=== PATIENT | female | born 1950 | race Caucasian/White ===

== ENCOUNTER 2019-08-25 04:21 | Observation (INO) | payer MEDICARE, OTHER ==
--- NOTE | 2019-08-25 04:29 | EDM.PDOC ---
ED HPI GENERAL MEDICAL PROBLEM - General Stated Complaint: HIGH BLOOD PRESSURE Time Seen by Provider: 08/25/19 04:27 Source of Information: Reports: Patient History Limitations: Reports: No Limitations - History of Present Illness INITIAL COMMENTS - FREE TEXT/NARRATIVE: 68-year-old female with history of fibromyalgia, Brugada syndrome, HTN, CAD presents with headache and chest discomfort. She was watching TV at 0 320 and started feeling gradual onset diffuse throbbing headache, she missed her night dose of lisinopril, she checked her blood pressure and it was 165/105. She took aspirin 324 mg, 1 sublingual nitroglycerin, Xanax with no relief she also took Tylenol with no relief. Her headache is currently rated 10/10. She also notes midsternal chest discomfort sensation rated 6/10, associated with nausea. She also has a cough with white sputum. She denies fever, chills, vomiting, back pain, abdominal pain. She currently sees Dr. Echeverria for management of her Brugada syndrome. ROS: A 10-point review of systems, other than pertinent positives and negatives as stated per HPI, is otherwise negative PHYSICAL EXAM General: AOx4, GCS = 15, No distress HEENT: dry mucous membrane Neck: supple, no meningismus, no Kernig or Brudzinski Cardiac: S1S2 RRR Respiratory: CTAB, no crackles or rales, no wheezing Abdomen: Soft, nontender, no rebound or guarding, nondistended, no pulsatile mass. Back: nontender Musculoskeletal: NVI distally, no deformity Neuro: No focal deficits. head/neck Pain Score (Numeric/FACES): 8 - Related Data Allergies Allergy/AdvReac Type Severity Reaction Status Date / Time cetirizine [From Zyrtec] Allergy Unknown Other Verified 08/25/19 06:28 chlordiazepoxide Allergy Other Verified 08/25/19 06:28 codeine Allergy Other Verified 08/25/19 06:28 iodine Allergy Other Verified 08/25/19 06:28 latex Allergy Other Verified 08/25/19 06:28 levofloxacin [From Levaquin] Allergy Pain Verified 08/25/19 06:28 montelukast [From Singulair] Allergy Other Verified 08/25/19 06:28 morphine Allergy Other Verified 08/25/19 06:28 nitrofurantoin Allergy Other Verified 08/25/19 06:28 [From Macrobid] oxycodone [From OxyContin] Allergy Other Verified 08/25/19 06:28 pantoprazole [From Protonix] Allergy Other Verified 08/25/19 06:28 Quinolones Allergy Other Verified 08/25/19 06:28 sulfamethoxazole Allergy Other Verified 08/25/19 06:28 [From Septra] topiramate Allergy Other Verified 08/25/19 06:28 tramadol Allergy Other Verified 08/25/19 06:28 trimethoprim [From Septra] Allergy Other Verified 08/25/19 06:28 Home Meds: Home Meds ALPRAZolam [Xanax] 0.5 mg PO BID 08/25/19 [History] Ascorbic Acid [Vitamin C] 500 mg PO DAILY 08/25/19 [History] Aspirin 81 mg PO DAILY 08/25/19 [History] Cholecalciferol (Vitamin D3) [Vitamin D3] 1 tab PO DAILY 08/25/19 [History] Cinnamon [Cinnamon Oil] 1 tab PO DAILY 08/25/19 [History] Cranberry 1 tab PO DAILY 08/25/19 [History] Fish Oil/[place]-3 Fatty Acids [Fish Oil 1,000 MG] 1 tab PO DAILY 08/25/19 [History] L.acidoph,Paracasei, B.lactis [Probiotic] 1 tab PO DAILY 08/25/19 [History] Magnesium Oxide [Magnesium] 400 mg PO DAILY 08/25/19 [History] Nitroglycerin [Nitrostat] 0.4 mg PO ASDIRECTED PRN 08/25/19 [History] Ranitidine [Zantac] 150 mg PO DAILY 08/25/19 [History] Rosuvastatin [Crestor] 5 mg PO DAILY 08/25/19 [History] Turmeric 40 mg PO DAILY 08/25/19 [History] Ubidecarenone [Co Q-10] 400 mg PO DAILY 08/25/19 [History] lisinopriL [Lisinopril] 5 mg PO BID 08/25/19 [History] Past Medical History Cardiovascular History: Reports: Angina, Hypertension Musculoskeletal History: Reports: Fibromyalgia, Osteoarthritis Endocrine/Metabolic History: Reports: Other (See Below) Other Endocrine/Metabolic History: "thyroid problems" Oncologic (Cancer) History: Reports: Basal Cell Carcinoma Dermatologic History: Reports: Other (See Below) Other Dermatologic History: basal cell carcinoma - Past Surgical History Respiratory Surgical History: Reports: Other (See Below) Other Respiratory Surgeries/Procedures: "lung nodules calcified" GI Surgical History: Reports: Appendectomy Female Surgical History: Reports: Hysterectomy, Other (See Below) Other Female Surgeries/Procedures: bladder and vaginal vault prolapse Neurological Surgical History: Reports: C-Spine, Spinal Fusion Musculoskeletal Surgical History: Reports: Shoulder Surgery Dermatological Surgical History: Reports: Other (See Below) ED ROS GENERAL - Review of Systems Review Of Systems: Comprehensive ROS is negative, except as noted in HPI. ED EXAM, GENERAL - Physical Exam Exam: See Below EKG INTERPRETATION EKG Interpretation Comments: 91 Bpm, NSR, normal QRS interval, type II Brugada syndrome, no STEMI. EKG and rhythm strip interpreted by me at 0445 Course - Vital Signs Last Recorded V/S: Last Vital Signs Temp 96.8 F L 08/25/19 05:34 Pulse 71 08/25/19 06:07 Resp 20 08/25/19 05:34 BP 138/79 08/25/19 06:07 Pulse Ox 96 08/25/19 05:34 - Orders/Labs/Meds Orders: Active Orders 24 hr Category Date Time Status Admission Status [Patient Status] [ADT] Stat ADT 08/25/19 06:52 Ordered Cardiac Monitoring [RC] . DIRECTED Care 08/25/19 04:58 Active Cardiac Monitoring [RC] . DIRECTED Care 08/25/19 06:52 Ordered EKG Documentation Completion [RC] STAT Care 08/25/19 04:59 Active Pulse Oximetry [RC] ASDIRECTED Care 08/25/19 04:58 Active CORONAVIRUS COVID-19 SHAUNNA [MOLEC] Stat Lab 08/25/19 06:10 Received TROPONIN I [CHEM] Stat Lab 08/25/19 06:51 Ordered Sodium Chloride 0.9% [Saline Flush] Med 08/25/19 04:58 Active 10 ml FLUSH ASDIRECTED PRN Sodium Chloride 0.9% [Saline Flush] Med 08/25/19 04:58 Active 2.5 ml FLUSH ASDIRECTED PRN Saline Lock Insert [OM.PC] Stat Oth 08/25/19 04:58 Ordered Medication Orders Sodium Chloride (Saline Flush) 10 ml FLUSH ASDIRECTED PRN PRN Reason: Keep Vein Open Sodium Chloride (Saline Flush) 2.5 ml FLUSH ASDIRECTED PRN PRN Reason: Keep Vein Open Labs: Laboratory Tests 08/25/19 08/25/19 08/25/19 Range/Units 05:15 05:15 05:15 WBC 7.20 (4.0-11.0) K/uL RBC 4.89 (4.30-5.90) M/uL Hgb 13.7 (12.0-16.0) g/dL Hct 41.4 (36.0-46.0) % MCV 84.7 (80.0-98.0) fL MCH 28.0 (27.0-32.0) pg MCHC 33.1 (31.0-37.0) g/dL RDW Std Deviation 40.3 (28.0-62.0) fl RDW Coeff of Yisel 13 (11.0-15.0) % Plt Count 301 (150-400) K/uL MPV 10.50 (7.40-12.00) fL Neut % (Auto) 58.2 (48.0-80.0) % Lymph % (Auto) 31.1 (16.0-40.0) % Wheeler % (Auto) 9.0 (0.0-15.0) % Eos % (Auto) 1.4 (0.0-7.0) % Baso % (Auto) 0.3 (0.0-1.5) % Neut # (Auto) 4.2 (1.4-5.7) K/uL Lymph # (Auto) 2.2 (0.6-2.4) K/uL Wheeler # (Auto) 0.7 (0.0-0.8) K/uL Eos # (Auto) 0.1 (0.0-0.7) K/uL Baso # (Auto) 0.0 (0.0-0.1) K/uL Nucleated RBC % 0.0 /100WBC Nucleated RBCs # 0 K/uL INR 0.95 APTT (18.6-31.3) SEC Sodium 141 (136-145) mmol/L Potassium 3.7 (3.5-5.1) mmol/L Chloride 105 (98-107) mmol/L Carbon Dioxide 26.7 (21.0-32.0) mmol/L BUN 15 (7.0-18.0) mg/dL Creatinine 0.8 (0.6-1.0) mg/dL Est Cr Clr Drug Dosing 60.56 mL/min Estimated GFR (MDRD) > 60.0 ml/min Glucose 98 (74-106) mg/dL Calcium 9.8 (8.5-10.1) mg/dL Total Bilirubin 0.3 (0.2-1.0) mg/dL AST 15 (15-37) IU/L ALT 21 (14-63) IU/L Alkaline Phosphatase 75 (46-116) U/L Troponin I < 0.050 (0.000-0.056) ng/mL B-Natriuretic Peptide (<100) PG/ML Total Protein 7.3 (6.4-8.2) g/dL Albumin 3.8 (3.4-5.0) g/dL Globulin 3.5 (2.6-4.0) g/dL Albumin/Globulin Ratio 1.1 (0.9-1.6) 08/25/19 08/25/19 Range/Units 05:15 05:15 WBC (4.0-11.0) K/uL RBC (4.30-5.90) M/uL Hgb (12.0-16.0) g/dL Hct (36.0-46.0) % MCV (80.0-98.0) fL MCH (27.0-32.0) pg MCHC (31.0-37.0) g/dL RDW Std Deviation (28.0-62.0) fl RDW Coeff of Yisel (11.0-15.0) % Plt Count (150-400) K/uL MPV (7.40-12.00) fL Neut % (Auto) (48.0-80.0) % Lymph % (Auto) (16.0-40.0) % Wheeler % (Auto) (0.0-15.0) % Eos % (Auto) (0.0-7.0) % Baso % (Auto) (0.0-1.5) % Neut # (Auto) (1.4-5.7) K/uL Lymph # (Auto) (0.6-2.4) K/uL Wheeler # (Auto) (0.0-0.8) K/uL Eos # (Auto) (0.0-0.7) K/uL Baso # (Auto) (0.0-0.1) K/uL Nucleated RBC % /100WBC Nucleated RBCs # K/uL INR APTT 25.8 (18.6-31.3) SEC Sodium (136-145) mmol/L Potassium (3.5-5.1) mmol/L Chloride (98-107) mmol/L Carbon Dioxide (21.0-32.0) mmol/L BUN (7.0-18.0) mg/dL Creatinine (0.6-1.0) mg/dL Est Cr Clr Drug Dosing mL/min Estimated GFR (MDRD) ml/min Glucose (74-106) mg/dL Calcium (8.5-10.1) mg/dL Total Bilirubin (0.2-1.0) mg/dL AST (15-37) IU/L ALT (14-63) IU/L Alkaline Phosphatase (46-116) U/L Troponin I (0.000-0.056) ng/mL B-Natriuretic Peptide 30 (<100) PG/ML Total Protein (6.4-8.2) g/dL Albumin (3.4-5.0) g/dL Globulin (2.6-4.0) g/dL Albumin/Globulin Ratio (0.9-1.6) Meds: Medications Generic Name Dose Route Start Last Admin Trade Name Freq PRN Reason Stop Dose Admin Sodium Chloride 10 ml 08/25/19 04:58 Saline Flush FLUSH ASDIRECTED PRN Keep Vein Open Sodium Chloride 2.5 ml 08/25/19 04:58 Saline Flush FLUSH ASDIRECTED PRN Keep Vein Open Discontinued Medications Generic Name Dose Route Start Last Admin Trade Name Freq PRN Reason Stop Dose Admin Diphenhydramine HCl 25 mg 08/25/19 05:09 08/25/19 05:28 Benadryl IVPUSH 08/25/19 05:10 Not Given ONETIME ONE Lactated Ringer's 500 mls @ 999 mls/hr 08/25/19 04:58 08/25/19 05:20 Ringers, Lactated IV 08/25/19 05:28 999 mls/hr .BOLUS ONE Administration Labetalol HCl 10 mg 08/25/19 05:08 08/25/19 06:50 Normodyne IVPUSH 08/25/19 05:09 Not Given ONETIME ONE Protocol Labetalol HCl 10 mg 08/25/19 05:30 Normodyne IVPUSH 08/25/19 05:31 ONETIME ONE Metoclopramide HCl 10 mg 08/25/19 05:09 08/25/19 05:28 Reglan IVPUSH 08/25/19 05:10 Not Given ONETIME ONE - Re-Assessments/Exams Free Text/Narrative Re-Assessment/Exam: 08/25/19 06:46 Patient has no chest pain at this time, her headache is improved down to 4/10. Case discussed with , who agrees to assume care at this point. The hospitalist's documentation supersedes all other documentation on this patient with regard to any conflicts or discrepancies from this point forward. Any emergency conditions have been treated to the ability of the ED prior to admission. Departure - Departure Time of Disposition: 06:47 Disposition: Refer to Observation Condition: Good Clinical Impression: Tension-type headache, Chest pain, Brugada syndrome, Hypertension - Discharge Information *PRESCRIPTION DRUG MONITORING PROGRAM REVIEWED*: Not Applicable *COPY OF PRESCRIPTION DRUG MONITORING REPORT IN PATIENT TIGIST: Not Applicable Referrals: Meek Dobbs MD [Primary Care Provider] - Sepsis Event Note (ED) - Focused Exam Vital Signs: Vital Signs Temp Pulse Resp BP Pulse Ox 08/25/19 06:07 71 138/79 08/25/19 05:34 96.8 F L 79 20 174/90 H 96 08/25/19 04:43 20 199/109 H 96 - My Orders Last 24 Hours: My Active Orders 08/25/19 04:58 Cardiac Monitoring [RC] . DIRECTED Pulse Oximetry [RC] ASDIRECTED Sodium Chloride 0.9% [Saline Flush] 10 ml FLUSH ASDIRECTED PRN Sodium Chloride 0.9% [Saline Flush] 2.5 ml FLUSH ASDIRECTED PRN Saline Lock Insert [OM.PC] Stat 08/25/19 04:59 EKG Documentation Completion [RC] STAT 08/25/19 06:10 CORONAVIRUS COVID-19 SHAUNNA [MOLEC] Stat 08/25/19 06:51 TROPONIN I [CHEM] Stat 08/25/19 06:52 Admission Status [Patient Status] [ADT] Stat Cardiac Monitoring [RC] . DIRECTED - Assessment/Plan Last 24 Hours: My Active Orders 08/25/19 04:58 Cardiac Monitoring [RC] . DIRECTED Pulse Oximetry [RC] ASDIRECTED Sodium Chloride 0.9% [Saline Flush] 10 ml FLUSH ASDIRECTED PRN Sodium Chloride 0.9% [Saline Flush] 2.5 ml FLUSH ASDIRECTED PRN Saline Lock Insert [OM.PC] Stat 08/25/19 04:59 EKG Documentation Completion [RC] STAT 08/25/19 06:10 CORONAVIRUS COVID-19 SHAUNNA [MOLEC] Stat 08/25/19 06:51 TROPONIN I [CHEM] Stat 08/25/19 06:52 Admission Status [Patient Status] [ADT] Stat Cardiac Monitoring [RC] . DIRECTED
[2019-08-25] MEDS ORDERED: Lactated Ringers 500 ML IV ONE (04:58)
[2019-08-25] MEDS ORDERED: Sodium Chloride 0.9% 2.5 ML Syringe FLUSH PRN (04:58)
[2019-08-25] MEDS ORDERED: Sodium Chloride 0.9% 10 ML Syringe FLUSH PRN (04:58)
[2019-08-25] MEDS ORDERED: Labetalol 100 MG/20 ML MDV IVPUSH ONE ×3 (05:08→08:35)
[2019-08-25] MEDS: diphenhydrAMINE 50 MG/ML SDV IVPUSH ONE ×2 (05:20→05:28)
[2019-08-25] MEDS: Metoclopramide 10 MG/2 ML SDV IVPUSH ONE ×2 (05:21→05:28)
[2019-08-25 05:53] LABS: BLOOD UREA NITROGEN,BUN 15 mg/dL (7.0-18.0); CARBON DIOXIDE,CO2 26.7 mmol/L (21.0-32.0); CHLORIDE,CL 105 mmol/L (98-107); GLUCOSE RANDOM 98 mg/dL (74-106); POTASSIUM,K 3.7 mmol/L (3.5-5.1); SODIUM,NA 141 mmol/L (136-145)
--- NOTE | 2019-08-25 06:13 | CR ---
INDICATION: Hypertension COMPARISON: None TECHNIQUE: PA and lateral views of the chest were acquired FINDINGS: TUBES AND LINES: None. HEART AND MEDIASTINUM: The heart size is normal. The mediastinal contour appears normal for patient age. LUNGS AND PLEURAL SPACES: The lungs appear normal.There pleural spaces are unremarkable.Incidental left upper lobe granuloma. OSSEOUS STRUCTURES: Age-appropriate appearance. No acute focal finding. IMPRESSION: No evidence of active pulmonary disease. Dictated by Bhavik Zafar MD @ Aug 25 2019 6:09AM Signed by Dr. Bhavik Zafar @ Aug 25 2019 6:11AM
--- NOTE | 2019-08-25 06:15 | CT ---
INDICATION: Headache. Hypertensive COMPARISON: None TECHNIQUE: CT examination of the head was performed as axial sections without intravenous contrast. Images were obtained from the vertex of the skull through the skull base. Please note that all CT scans at this facility use dose modulation, iterative reconstruction, and/or weight-based dosing when appropriate to reduce radiation dose to as low as reasonably achievable. FINDINGS: The brain shows no sign of mass lesion, mass effect, hemorrhage, or edema. The ventricles and sulci are normal in appearance for the patient`s age. The visualized portions of the orbits are normal in appearance. The osseous structures are normal in their appearance with no sign of abnormality in the skull base or calvarium. IMPRESSION: Age-appropriate appearance of the brain. No acute appearing finding. Please note that all CT scans at this facility use dose modulation, iterative reconstruction, and/or weight-based dosing when appropriate to reduce radiation dose to as low as reasonably achievable. Dictated by Bhavik Zafar MD @ Aug 25 2019 6:11AM Signed by Dr. Bhavik Zafar @ Aug 25 2019 6:13AM
[2019-08-25] MEDS ORDERED: Albuterol/Ipratropium 3.0-0.5 MG/3 ML Neb Soln NEB PRN (08:31)
[2019-08-25] MEDS ORDERED: Nitroglycerin 0.4 MG Tab.SL SL PRN (08:36)
[2019-08-25] MEDS ORDERED: Labetalol 100 MG/20 ML MDV IVPUSH PRN (08:38)
[2019-08-25] MEDS ORDERED: ACIDOPH PARACASEI B LACTIS PO SCH (09:00)
[2019-08-25] MEDS ORDERED: Cholecalciferol (Vitamin D3) 10 MCG Tab PO SCH (09:00)
[2019-08-25] MEDS ORDERED: Ranitidine 15 MG/ML Syrup 10 ML UD Cup PO SCH (09:00)
[2019-08-25] MEDS ORDERED: ALPRAZolam 0.5 MG Tab PO PRN (09:00)
[2019-08-25] MEDS ORDERED: Rosuvastatin 10 MG Tab PO SCH ×2 (09:00→21:00)
[2019-08-25] MEDS: Fish Oil/Omega-3 Fatty Acids 1 Gm Cap PO SCH ×2 (09:56→10:23)
[2019-08-25] MEDS: Ascorbic Acid 500 MG Tab PO SCH ×2 (09:56→10:24)
[2019-08-25] MEDS: Aspirin 81 MG Tab.Chew PO SCH (09:58)
[2019-08-25] MEDS: Lisinopril 5 MG Tab PO SCH ×4 (10:14→20:20)
[2019-08-25] MEDS ORDERED: Levothyroxine 75 MCG Tab PO SCH (10:45)
[2019-08-25] MEDS: Cholecalciferol (Vitamin D3) 10 MCG Tab PO SCH (11:39)
[2019-08-25] MEDS: Famotidine 20 MG Tab PO SCH ×2 (11:39→20:21)
--- NOTE | 2019-08-25 11:48 | PCM.HP.2 ---
H&P History of Present Illness - General Date of Service: 08/25/19 Admit Problem/Dx: Admission Diagnosis/Problem Admission Diagnosis/Problem Chest pain - History of Present Illness Initial Comments - Free Text/Narative: 68-year-old female with history of fibromyalgia, Brugada syndrome, HTN, CAD presents with headache and chest discomfort. She was watching TV at 320 and started feeling gradual onset diffuse throbbing headache, she missed her night dose of lisinopril, she checked her blood pressure and it was 165/105, checked again SBP>200. She took aspirin 324 mg, 1 sublingual nitroglycerin, Xanax with no relief she also took Tylenol with no relief. She also notes midsternal chest discomfort sensation rated 6/10, associated with nausea. She also has a cough with white sputum. She denies fever, chills, vomiting, back pain, abdominal pain. She currently sees Dr. Garcia for management of her Brugada syndrome. Patent had a recent stress test in Feb which was unremarkable. She was supposed to see EPS but didnt go due to current pandemic. Patient states her BP is usually low so she ends up taking lisinopril 2.5 once a day. Patient states she think her anxiety causes her BP to up, states she had a stressful day yesterday after she had an argument with her family member. She was also up all night pedro watching a drama series which also made her emotional. States she woke up her son due to her high BP and came to ER. Patient states her chest discomfort felt more like a heart burn. Denied any palpitations, syncope, pre-syncope, dizziness. In ER EKG showed 1st degree HB and Brugada. Rest of the labs were unremarkable. Patient is being admitted for ACS rule out. head/neck Pain Score (Numeric/FACES): 8 - Related Data Allergies/Adverse Reactions: Allergies Allergy/AdvReac Type Severity Reaction Status Date / Time levofloxacin [From Levaquin] Allergy Severe Pain Verified 08/25/19 18:25 tramadol Allergy Intermediate Other Verified 08/25/19 18:31 latex Allergy Mild Other Verified 08/25/19 18:24 cetirizine [From Zyrtec] Allergy Unknown Other Verified 08/25/19 18:21 chlordiazepoxide Allergy Unknown Other Verified 08/25/19 18:21 nitrofurantoin Allergy Unknown Other Verified 08/25/19 18:27 [From Macrobid] sulfamethoxazole Allergy Unknown Other Verified 08/25/19 18:31 [From Septra] topiramate Allergy Unknown Other Verified 08/25/19 18:31 trimethoprim [From Septra] Allergy Unknown Other Verified 08/25/19 18:31 Quinolones AdvReac Unknown Other Verified 08/25/19 18:31 codeine AdvReac Other Verified 08/25/19 18:21 iodine AdvReac Other Verified 08/25/19 18:23 montelukast [From Singulair] AdvReac Other Verified 08/25/19 18:26 morphine AdvReac Other Verified 08/25/19 18:26 oxycodone [From OxyContin] AdvReac Other Verified 08/25/19 18:31 pantoprazole [From Protonix] AdvReac Other Verified 08/25/19 18:31 Home Medications: Home Meds ALPRAZolam [Xanax] 0.5 mg PO BID 08/25/19 [History] Ascorbic Acid [Vitamin C] 500 mg PO DAILY 08/25/19 [History] Aspirin 81 mg PO DAILY 08/25/19 [History] Cholecalciferol (Vitamin D3) [Vitamin D3] 1 tab PO DAILY 08/25/19 [History] Cinnamon [Cinnamon Oil] 1 tab PO DAILY 08/25/19 [History] Cranberry 1 tab PO DAILY 08/25/19 [History] Famotidine 20 mg PO BID 08/25/19 [History] Fish Oil/Colton-3 Fatty Acids [Fish Oil 1,000 MG] 1 tab PO DAILY 08/25/19 [History] L.acidoph,Paracasei, B.lactis [Probiotic] 1 tab PO DAILY 08/25/19 [History] Levothyroxine Sodium [Levoxyl] 75 mg PO DAILY 08/25/19 [History] Magnesium Oxide [Magnesium] 400 mg PO DAILY 08/25/19 [History] Nitroglycerin [Nitrostat] 0.4 mg PO ASDIRECTED PRN 08/25/19 [History] Rosuvastatin [Crestor] 5 mg PO DAILY 08/25/19 [History] Turmeric 40 mg PO DAILY 08/25/19 [History] Ubidecarenone [Co Q-10] 400 mg PO DAILY 08/25/19 [History] lisinopriL [Lisinopril] 2.5 mg PO BID 08/25/19 [History] Past Medical History Other HEENT History: sinitus Cardiovascular History: Reports: Angina, Hypertension Other Cardiovascular History: coronary artery spasm Other Gastrointestinal History: cholecystitis Other Genitourinary History: kideney mass, Musculoskeletal History: Reports: Fibromyalgia, Osteoarthritis Other Musculoskeletal History: bursitis Neurological History: Reports: Migraines Other Neuro History: memory loss, myalgia, Endocrine/Metabolic History: Reports: Other (See Below) Other Endocrine/Metabolic History: "thyroid problems" Oncologic (Cancer) History: Reports: Basal Cell Carcinoma Other Oncologic History: lung nodule, Dermatologic History: Reports: Other (See Below) Other Dermatologic History: basal cell carcinoma - Past Surgical History Respiratory Surgical History: Reports: Other (See Below) Other Respiratory Surgeries/Procedures: "lung nodules calcified" GI Surgical History: Reports: Appendectomy Female Surgical History: Reports: Hysterectomy, Other (See Below) Other Female Surgeries/Procedures: bladder and vaginal vault prolapse Neurological Surgical History: Reports: C-Spine, Spinal Fusion Musculoskeletal Surgical History: Reports: Shoulder Surgery Dermatological Surgical History: Reports: Other (See Below) Social & Family History - Tobacco Use Smoking Status *Q: Never Smoker - Recreational Drug Use Recreational Drug Use: No H&P Review of Systems - Review of Systems: Review Of Systems: See Below General: Denies: Fever, Chills, Malaise Pulmonary: Denies: Shortness of Breath, Wheezing Cardiovascular: Denies: Chest Pain, Palpitations, Dyspnea on Exertion, Orthopnea Gastrointestinal: Denies: Abdominal Pain, Anorexia, Black Stool Genitourinary: Denies: Dysuria, Frequency, Burning Musculoskeletal: Denies: Neck Pain, Shoulder Pain, Arm Pain Skin: Denies: Cyanosis, Jaundice, Mottled Psychiatric: Reports: Anxiety. Denies: Confusion, Depression, Mood Lability, Agitation, Cravings, Hallucinations Exam - Exam Exam: See Below - Vital Signs Vital Signs: Last Vital Signs Temp 36.6 C 08/25/19 09:10 Pulse 71 08/25/19 09:10 Resp 15 08/25/19 09:10 BP 128/67 08/25/19 10:54 Pulse Ox 97 08/25/19 09:10 Weight: 76.204 kg - Exam Quality Assessment: Supplemental Oxygen General: Alert, Oriented Neck: Supple Lungs: Clear to Auscultation Cardiovascular: Regular Rate, Regular Rhythm GI/Abdominal Exam: Normal Bowel Sounds, Soft, Non-Tender Peripheral Pulses: 3+: Dorsalis Pedis (L), Dorsalis Pedis (R) Neurological: Cranial Nerves Intact, Strength Equal Bilateral Neuro Extensive - Mental Status: Alert, Oriented x3, Normal Mood/Affect - Patient Data Lab Results Last 24 hrs: Laboratory Results - last 24 hr 08/25/19 08/25/19 08/25/19 Range/Units 05:15 05:15 05:15 WBC 7.20 (4.0-11.0) K/uL RBC 4.89 (4.30-5.90) M/uL Hgb 13.7 (12.0-16.0) g/dL Hct 41.4 (36.0-46.0) % MCV 84.7 (80.0-98.0) fL MCH 28.0 (27.0-32.0) pg MCHC 33.1 (31.0-37.0) g/dL RDW Std Deviation 40.3 (28.0-62.0) fl RDW Coeff of Yisel 13 (11.0-15.0) % Plt Count 301 (150-400) K/uL MPV 10.50 (7.40-12.00) fL Neut % (Auto) 58.2 (48.0-80.0) % Lymph % (Auto) 31.1 (16.0-40.0) % [place] % (Auto) 9.0 (0.0-15.0) % Eos % (Auto) 1.4 (0.0-7.0) % Baso % (Auto) 0.3 (0.0-1.5) % Neut # (Auto) 4.2 (1.4-5.7) K/uL Lymph # (Auto) 2.2 (0.6-2.4) K/uL [place] # (Auto) 0.7 (0.0-0.8) K/uL Eos # (Auto) 0.1 (0.0-0.7) K/uL Baso # (Auto) 0.0 (0.0-0.1) K/uL Nucleated RBC % 0.0 /100WBC Nucleated RBCs # 0 K/uL INR 0.95 APTT (18.6-31.3) SEC Sodium 141 (136-145) mmol/L Potassium 3.7 (3.5-5.1) mmol/L Chloride 105 (98-107) mmol/L Carbon Dioxide 26.7 (21.0-32.0) mmol/L BUN 15 (7.0-18.0) mg/dL Creatinine 0.8 (0.6-1.0) mg/dL Est Cr Clr Drug Dosing 60.56 mL/min Estimated GFR (MDRD) > 60.0 ml/min Glucose 98 (74-106) mg/dL Calcium 9.8 (8.5-10.1) mg/dL Total Bilirubin 0.3 (0.2-1.0) mg/dL AST 15 (15-37) IU/L ALT 21 (14-63) IU/L Alkaline Phosphatase 75 (46-116) U/L Troponin I < 0.050 (0.000-0.056) ng/mL B-Natriuretic Peptide (<100) PG/ML Total Protein 7.3 (6.4-8.2) g/dL Albumin 3.8 (3.4-5.0) g/dL Globulin 3.5 (2.6-4.0) g/dL Albumin/Globulin Ratio 1.1 (0.9-1.6) SARS Virus RNA (PCR) (NEGATIVE) 08/25/19 08/25/19 08/25/19 Range/Units 05:15 05:15 06:10 WBC (4.0-11.0) K/uL RBC (4.30-5.90) M/uL Hgb (12.0-16.0) g/dL Hct (36.0-46.0) % MCV (80.0-98.0) fL MCH (27.0-32.0) pg MCHC (31.0-37.0) g/dL RDW Std Deviation (28.0-62.0) fl RDW Coeff of Yisel (11.0-15.0) % Plt Count (150-400) K/uL MPV (7.40-12.00) fL Neut % (Auto) (48.0-80.0) % Lymph % (Auto) (16.0-40.0) % [place] % (Auto) (0.0-15.0) % Eos % (Auto) (0.0-7.0) % Baso % (Auto) (0.0-1.5) % Neut # (Auto) (1.4-5.7) K/uL Lymph # (Auto) (0.6-2.4) K/uL [place] # (Auto) (0.0-0.8) K/uL Eos # (Auto) (0.0-0.7) K/uL Baso # (Auto) (0.0-0.1) K/uL Nucleated RBC % /100WBC Nucleated RBCs # K/uL INR APTT 25.8 (18.6-31.3) SEC Sodium (136-145) mmol/L Potassium (3.5-5.1) mmol/L Chloride (98-107) mmol/L Carbon Dioxide (21.0-32.0) mmol/L BUN (7.0-18.0) mg/dL Creatinine (0.6-1.0) mg/dL Est Cr Clr Drug Dosing mL/min Estimated GFR (MDRD) ml/min Glucose (74-106) mg/dL Calcium (8.5-10.1) mg/dL Total Bilirubin (0.2-1.0) mg/dL AST (15-37) IU/L ALT (14-63) IU/L Alkaline Phosphatase (46-116) U/L Troponin I (0.000-0.056) ng/mL B-Natriuretic Peptide 30 (<100) PG/ML Total Protein (6.4-8.2) g/dL Albumin (3.4-5.0) g/dL Globulin (2.6-4.0) g/dL Albumin/Globulin Ratio (0.9-1.6) SARS Virus RNA (PCR) NEGATIVE (NEGATIVE) 08/25/19 Range/Units 07:09 WBC (4.0-11.0) K/uL RBC (4.30-5.90) M/uL Hgb (12.0-16.0) g/dL Hct (36.0-46.0) % MCV (80.0-98.0) fL MCH (27.0-32.0) pg MCHC (31.0-37.0) g/dL RDW Std Deviation (28.0-62.0) fl RDW Coeff of Yisel (11.0-15.0) % Plt Count (150-400) K/uL MPV (7.40-12.00) fL Neut % (Auto) (48.0-80.0) % Lymph % (Auto) (16.0-40.0) % [place] % (Auto) (0.0-15.0) % Eos % (Auto) (0.0-7.0) % Baso % (Auto) (0.0-1.5) % Neut # (Auto) (1.4-5.7) K/uL Lymph # (Auto) (0.6-2.4) K/uL [place] # (Auto) (0.0-0.8) K/uL Eos # (Auto) (0.0-0.7) K/uL Baso # (Auto) (0.0-0.1) K/uL Nucleated RBC % /100WBC Nucleated RBCs # K/uL INR APTT (18.6-31.3) SEC Sodium (136-145) mmol/L Potassium (3.5-5.1) mmol/L Chloride (98-107) mmol/L Carbon Dioxide (21.0-32.0) mmol/L BUN (7.0-18.0) mg/dL Creatinine (0.6-1.0) mg/dL Est Cr Clr Drug Dosing mL/min Estimated GFR (MDRD) ml/min Glucose (74-106) mg/dL Calcium (8.5-10.1) mg/dL Total Bilirubin (0.2-1.0) mg/dL AST (15-37) IU/L ALT (14-63) IU/L Alkaline Phosphatase (46-116) U/L Troponin I < 0.050 (0.000-0.056) ng/mL B-Natriuretic Peptide (<100) PG/ML Total Protein (6.4-8.2) g/dL Albumin (3.4-5.0) g/dL Globulin (2.6-4.0) g/dL Albumin/Globulin Ratio (0.9-1.6) SARS Virus RNA (PCR) (NEGATIVE) Result Diagrams: 08/25/19 05:15 08/25/19 05:15 Sepsis Event Note - Evaluation Sepsis Screening Result: No Definite Risk - Focused Exam Vital Signs: Vital Signs Temp Pulse Resp BP BP BP Pulse Ox 08/25/19 10:54 128/67 08/25/19 09:10 36.6 C 71 15 119/65 97 08/25/19 08:26 73 196/76 H 98 08/25/19 07:36 35.8 C L 74 16 170/88 H 97 08/25/19 06:07 71 138/79 08/25/19 05:34 36.0 C L 79 20 174/90 H 96 08/25/19 04:43 20 199/109 H 96 Date Exam was Performed: 08/27/19 Time Exam was Performed: 14:24 - Problem List (1) Uncontrolled hypertension SNOMED Code(s): 52589588, 50196540 ICD Code: I10 - ESSENTIAL (PRIMARY) HYPERTENSION Status: Acute (2) Brugada syndrome SNOMED Code(s): 809997729 ICD Code: I49.8 - OTHER SPECIFIED CARDIAC ARRHYTHMIAS Status: Acute (3) Chest pain SNOMED Code(s): 95074870 ICD Code: R07.9 - CHEST PAIN, UNSPECIFIED Status: Acute (4) Tension-type headache SNOMED Code(s): 173021351 ICD Code: G44.209 - TENSION-TYPE HEADACHE, UNSPECIFIED, NOT INTRACTABLE Status: Acute Problem List Initiated/Reviewed/Updated: Yes Orders Last 24hrs: Active Orders 24 hr Category Date Time Status Admission Status [Patient Status] [ADT] Stat ADT 08/25/19 06:52 Active Ambulate [RC] ASDIRECTED Care 08/25/19 08:31 Active Antiembolic Devices [RC] PER UNIT ROUTINE Care 08/25/19 08:33 Active Cardiac Monitoring [RC] . DIRECTED Care 08/25/19 04:58 Active Cardiac Monitoring [RC] . DIRECTED Care 08/25/19 06:52 Active Oxygen Therapy [RC] PRN Care 08/25/19 08:31 Active Pulse Oximetry [RC] ASDIRECTED Care 08/25/19 04:58 Active RT Aerosol Therapy [RC] ASDIRECTED Care 08/25/19 08:33 Active Telemetry Monitoring [Cardiac Monitoring] [RC] Q8H Care 08/25/19 08:48 Active VTE/DVT Education [RC] PER UNIT ROUTINE Care 08/25/19 08:31 Active Heart Healthy Diet [DIET] Diet 08/25/19 Breakfast Active TROPONIN I [CHEM] Routine Lab 08/25/19 11:14 Received ALPRAZolam [Xanax] Med 08/25/19 09:00 Active 0.5 mg PO BID PRN Acetaminophen [Tylenol] Med 08/25/19 08:31 Active 650 mg PO Q4H PRN Albuterol/Ipratropium [DuoNeb 3.0-0.5 MG/3 ML] Med 08/25/19 08:31 Active 3 ml NEB Q4HRRT PRN Ascorbic Acid [Vitamin C] Med 08/25/19 09:00 Active 500 mg PO DAILY Aspirin Med 08/25/19 09:00 Active 81 mg PO DAILY Cholecalciferol (Vitamin D3) [Vitamin D3] Med 08/25/19 10:15 Active 10 mcg PO DAILY Famotidine [Pepcid] Med 08/25/19 10:15 Active 20 mg PO BID Fish Oil/Colton-3 Fatty Acids [Fish Oil] Med 08/25/19 09:00 Active 1 gm PO DAILY Labetalol [Normodyne] Med 08/25/19 08:38 Active 10 mg IVPUSH Q4H PRN Levothyroxine Med 08/25/19 17:00 Active 75 mcg PO ACBREAKFAST Nitroglycerin [Nitrostat] Med 08/25/19 08:36 Active 0.4 mg SL ASDIRECTED PRN Rosuvastatin [Crestor] Med 08/25/19 09:00 Active 5 mg PO DAILY Sodium Chloride 0.9% [Saline Flush] Med 08/25/19 04:58 Active 10 ml FLUSH ASDIRECTED PRN Sodium Chloride 0.9% [Saline Flush] Med 08/25/19 04:58 Active 2.5 ml FLUSH ASDIRECTED PRN lisinopriL [Prinivil] Med 08/25/19 10:30 Active 2.5 mg PO BID Saline Lock Insert [OM.PC] Stat Oth 08/25/19 04:58 Ordered Sequential Compression Device [OM.PC] Per Unit Routine Oth 08/25/19 08:32 Ordered Code Status [Resuscitation Status] Routine Resus Stat 08/25/19 10:58 Ordered Medication Orders Acetaminophen (Tylenol) 650 mg PO Q4H PRN PRN Reason: Pain (Mild 1-3)/fever Albuterol/Ipratropium (Duoneb 3.0-0.5 Mg/3 Ml) 3 ml NEB Q4HRRT PRN PRN Reason: Shortness Of Breath/wheezing Alprazolam (Xanax) 0.5 mg PO BID PRN PRN Reason: ANXIETY Ascorbic Acid (Vitamin C) 500 mg PO DAILY [facility] Last Admin: 08/25/19 10:24 Dose: Not Given Documented by: PROFLUC Aspirin (Aspirin) 81 mg PO DAILY [facility] Last Admin: 08/25/19 09:58 Dose: Not Given Documented by: PROFLUC Cholecalciferol (Vitamin D3) 10 mcg PO DAILY [facility] Famotidine (Pepcid) 20 mg PO BID [facility] Fish Oil (Fish Oil) 1 gm PO DAILY [facility] Last Admin: 08/25/19 10:23 Dose: Not Given Documented by: PROFLUC Labetalol HCl (Normodyne) 10 mg IVPUSH Q4H PRN; Protocol PRN Reason: Hypertension Levothyroxine Sodium (Levothyroxine) 75 mcg PO ACBREAKFAST [facility] Lisinopril (Prinivil) 2.5 mg PO BID [facility] Last Admin: 08/25/19 10:54 Dose: 2.5 mg Documented by: PROFLUC Nitroglycerin (Nitrostat) 0.4 mg SL ASDIRECTED PRN PRN Reason: Chest Pain Rosuvastatin Calcium (Crestor) 5 mg PO DAILY [facility] Last Admin: 08/25/19 09:58 Dose: Not Given Documented by: PROFLUC Sodium Chloride (Saline Flush) 10 ml FLUSH ASDIRECTED PRN PRN Reason: Keep Vein Open Sodium Chloride (Saline Flush) 2.5 ml FLUSH ASDIRECTED PRN PRN Reason: Keep Vein Open Assessment/Plan Comment:: 68 y/o F admitted for ACS rule out Trend troponin X3 EKG noted, no sign of ischemic changes I spoke to cardiology, recommended fu with EPS on outpatient basis for evaluation of Brugada finding on EKG, no syncope, no dizziness cont home meds Labetalol IV PRN for SBP>180 Cardiac diet SCD for DVT ppx Monitor and replete electrolytes as needed Ambulate as tolerated
[2019-08-25] MEDS ORDERED: Aluminum Hydroxide/Magnesium Hydroxide/Simethicone Susp 30 ML Cup PO ONE (13:57)
[2019-08-25] MEDS: Acetaminophen 325 MG Tab PO PRN ×2 (14:28→19:49)
[2019-08-25] MEDS: Levothyroxine 75 MCG Tab PO SCH (17:10)
[2019-08-26] MEDS: Levothyroxine 75 MCG Tab PO SCH (07:18)
[2019-08-26] MEDS: Famotidine 20 MG Tab PO SCH (09:01)
[2019-08-26] MEDS: Aspirin 81 MG Tab.Chew PO SCH (09:02)
[2019-08-26] MEDS: Cholecalciferol (Vitamin D3) 10 MCG Tab PO SCH (09:02)
[2019-08-26] MEDS: Lisinopril 5 MG Tab PO SCH (09:02)
[2019-08-26] MEDS: Ascorbic Acid 500 MG Tab PO SCH (09:02)
[2019-08-26] MEDS: Fish Oil/Omega-3 Fatty Acids 1 Gm Cap PO SCH (09:02)
--- NOTE | 2019-08-26 09:03 | PCM.DCSUM1 ---
Discharge Summary - Discharge Data Discharge Date: 08/26/19 Discharge Disposition: Home, Self-Care 01 Condition: Stable - Referral to Home Health Primary Care Physician: Barbara Marquez MD - Patient Summary/Data Hospital Course: 68-year-old female with history of fibromyalgia, Brugada syndrome, HTN, CAD who was admitted for chest pain. She presented with headache and chest discomfort associated with elevated blood pressure as she missed her evening blood pressure dose of lisinopril. She thinks her chest pain was stress related. IN the ED she was noted to have no signs of acute ischemia on EKG. She was monitored overnight on telemetry with no events. She rule out for acute coronary syndrome with serial negative cardiac enzymes. She was discharged home to have follow up with Dr. Cox. - Patient Instructions Diet: Heart Healthy Diet - Discharge Plan *PRESCRIPTION DRUG MONITORING PROGRAM REVIEWED*: Not Applicable *COPY OF PRESCRIPTION DRUG MONITORING REPORT IN PATIENT TIGIST: Not Applicable Home Medications: Home Meds ALPRAZolam [Xanax] 0.5 mg PO BID 08/25/19 [History] Ascorbic Acid [Vitamin C] 500 mg PO DAILY 08/25/19 [History] Aspirin 81 mg PO DAILY 08/25/19 [History] Cholecalciferol (Vitamin D3) [Vitamin D3] 1 tab PO DAILY 08/25/19 [History] Cinnamon [Cinnamon Oil] 1 tab PO DAILY 08/25/19 [History] Cranberry 1 tab PO DAILY 08/25/19 [History] Famotidine 20 mg PO BID 08/25/19 [History] Fish Oil/[place]-3 Fatty Acids [Fish Oil 1,000 MG] 1 tab PO DAILY 08/25/19 [History] L.acidoph,Paracasei, B.lactis [Probiotic] 1 tab PO DAILY 08/25/19 [History] Levothyroxine Sodium [Levoxyl] 75 mg PO DAILY 08/25/19 [History] Magnesium Oxide [Magnesium] 400 mg PO DAILY 08/25/19 [History] Nitroglycerin [Nitrostat] 0.4 mg PO ASDIRECTED PRN 08/25/19 [History] Rosuvastatin [Crestor] 5 mg PO DAILY 08/25/19 [History] Turmeric 40 mg PO DAILY 08/25/19 [History] Ubidecarenone [Co Q-10] 400 mg PO DAILY 08/25/19 [History] lisinopriL [Lisinopril] 2.5 mg PO BID 08/25/19 [History] Patient Handouts: Hypertension, Adult, [id number] Forms: ED Department Discharge Referrals: Danie Anthony MD [Physician] - Meek Dobbs MD [Family Provider] - 09/01/19 12:15 pm - Discharge Summary/Plan Comment DC Time >30 min.: No - Patient Data Vitals - Most Recent: Last Vital Signs Temp 36.7 C 08/26/19 07:16 Pulse 62 08/26/19 07:16 Resp 20 08/26/19 07:16 BP 133/65 08/26/19 07:16 Pulse Ox 98 08/26/19 07:16 Weight - Most Recent: 76.204 kg I&O - Last 24 hours: Intake & Output 08/25/19 08/26/19 08/26/19 22:59 06:59 14:59 Intake Total 1200 1480 Output Total 900 1450 Balance 300 30 Lab Results - Last 24 hrs: Laboratory Results - last 24 hr 08/25/19 Range/Units 11:14 Troponin I < 0.050 (0.000-0.056) ng/mL Med Orders - Current: Current Medications Acetaminophen (Tylenol) 650 mg PO Q4H PRN PRN Reason: Pain (Mild 1-3)/fever Last Admin: 08/25/19 19:49 Dose: 650 mg Documented by: Albuterol/Ipratropium (Duoneb 3.0-0.5 Mg/3 Ml) 3 ml NEB Q4HRRT PRN PRN Reason: Shortness Of Breath/wheezing Alprazolam (Xanax) 0.5 mg PO BID PRN PRN Reason: ANXIETY Ascorbic Acid (Vitamin C) 500 mg PO DAILY [facility] Last Admin: 08/25/19 10:24 Dose: Not Given Documented by: Aspirin (Aspirin) 81 mg PO DAILY [facility] Last Admin: 08/25/19 09:58 Dose: Not Given Documented by: Cholecalciferol (Vitamin D3) 10 mcg PO DAILY [facility] Last Admin: 08/25/19 11:39 Dose: 10 mcg Documented by: Famotidine (Pepcid) 20 mg PO BID [facility] Last Admin: 07/17/20 20:21 Dose: 20 mg Documented by: Fish Oil (Fish Oil) 1 gm PO DAILY [facility] Last Admin: 08/25/19 10:23 Dose: Not Given Documented by: Labetalol HCl (Normodyne) 10 mg IVPUSH Q4H PRN; Protocol PRN Reason: Hypertension Levothyroxine Sodium (Levothyroxine) 75 mcg PO ACBREAKFAST [facility] Last Admin: 08/26/19 07:18 Dose: 75 mcg Documented by: Lisinopril (Prinivil) 2.5 mg PO BID [facility] Last Admin: 08/25/19 20:20 Dose: 2.5 mg Documented by: Nitroglycerin (Nitrostat) 0.4 mg SL ASDIRECTED PRN PRN Reason: Chest Pain Rosuvastatin Calcium (Crestor) 5 mg PO BEDTIME [facility] Last Admin: 08/25/19 21:24 Dose: 5 mg Documented by: Sodium Chloride (Saline Flush) 10 ml FLUSH ASDIRECTED PRN PRN Reason: Keep Vein Open Sodium Chloride (Saline Flush) 2.5 ml FLUSH ASDIRECTED PRN PRN Reason: Keep Vein Open Discontinued Medications Al Hydroxide/Mg Hydroxide (Mag-Al Plus) 30 ml PO ONETIME ONE Stop: 08/25/19 13:58 Last Admin: 08/25/19 14:15 Dose: Not Given Documented by: Cholecalciferol (Vitamin D3) 1 mcg PO DAILY [facility] Last Admin: 08/25/19 10:55 Dose: Not Given Documented by: Diphenhydramine HCl (Benadryl) 25 mg IVPUSH ONETIME ONE Stop: 08/25/19 05:10 Last Admin: 08/25/19 05:28 Dose: Not Given Documented by: Lactated Ringer's (Ringers, Lactated) 500 mls @ 999 mls/hr IV .BOLUS ONE Stop: 08/25/19 05:28 Last Admin: 08/25/19 05:20 Dose: 999 mls/hr Documented by: Labetalol HCl (Normodyne) 10 mg IVPUSH ONETIME ONE; Protocol Stop: 08/25/19 05:09 Last Admin: 08/25/19 06:50 Dose: Not Given Documented by: Labetalol HCl (Normodyne) 10 mg IVPUSH ONETIME ONE Stop: 08/25/19 05:31 Last Admin: 08/25/19 05:30 Dose: 10 mg Documented by: Labetalol HCl (Normodyne) 20 mg IVPUSH ONETIME ONE; Protocol Stop: 08/25/19 08:36 Last Admin: 08/25/19 09:58 Dose: Not Given Documented by: Levothyroxine Sodium (Levothyroxine) 75 mcg PO ACBREAKFAST [facility] Last Admin: 08/25/19 11:55 Dose: Not Given Documented by: Lisinopril (Prinivil) 5 mg PO BID [facility] Last Admin: 08/25/19 10:55 Dose: Not Given Documented by: Metoclopramide HCl (Reglan) 10 mg IVPUSH ONETIME ONE Stop: 08/25/19 05:10 Last Admin: 08/25/19 05:28 Dose: Not Given Documented by: Rosuvastatin Calcium (Crestor) 5 mg PO DAILY [facility] Last Admin: 08/25/19 09:58 Dose: Not Given Documented by:
== END 2019-08-26 11:15 | disposition home or self-care (01) ==
LOC: MW.ED 04:21 → MW.MS 06:52 → UNDOADMOB 06:52
PROVIDERS: ADMIT Student in an Organized Health Care Education/Training Program; ATTEND Student in an Organized Health Care Education/Training Program
DX: R07.2 Precordial pain (principal); G44.209 Tension-type headache, unspecified, not intractable; M79.7 Fibromyalgia; I49.8 Other specified cardiac arrhythmias; I10 Essential (primary) hypertension; I25.10 Atherosclerotic heart disease of native coronary artery without angina pectoris; Z20.828 Contact with and (suspected) exposure to other viral communicable diseases; Z88.8 Allergy status to other drugs, medicaments and biological substances; Z88.5 Allergy status to narcotic agent; Z91.041 Radiographic dye allergy status; Z88.2 Allergy status to sulfonamides; Z88.6 Allergy status to analgesic agent; Z79.899 Other long term (current) drug therapy; Z79.82 Long term (current) use of aspirin; Z91.040 Latex allergy status
CPT/HCPCS: 36415; 70450; 71045; 80053; 83880; 84484; 85025; 85610; 85730; 93005; 96361; 96374; 99285; A9270; G0378; J3490; J7120; U0002; 93010; 99284; J1200; J2765

== ENCOUNTER 2020-05-15 14:21 | Observation (INO) | payer MEDICARE, OTHER ==
[2020-05-15] MEDS ORDERED: Sodium Chloride 0.9% 2.5 ML Syringe FLUSH PRN (14:53)
[2020-05-15] MEDS ORDERED: Sodium Chloride 0.9% 10 ML Syringe FLUSH PRN (14:53)
--- NOTE | 2020-05-15 15:10 | EDM.PDOC ---
ED HPI GENERAL MEDICAL PROBLEM - General Chief Complaint: Cardiovascular Problem Stated Complaint: HIGH BP Time Seen by Provider: 05/15/20 14:32 Source of Information: Reports: Patient History Limitations: Reports: No Limitations - History of Present Illness INITIAL COMMENTS - FREE TEXT/NARRATIVE: HISTORY AND PHYSICAL: History of present illness: Patient is a 69-year-old female who presents to the emergency room who presents to the emergency room with complaints of generally feeling unwell and high blood pressure. She states she woke up around 2 AM with needing to void and have a bowel movement. During that time she felt generally unwell. She checked her blood pressure around 0330 and it was 204/112. She also had some left arm tingling without weakness. She had taken some of her prescribed medications and was able to get her blood pressure down to "normal". Blood pressure would go "up and down" and she continues to feel generally unwell, fatigued and slightly nauseated. She was able to see her primary care provider today who wanted her to come to the emergency room for a "work-up" due to her hypertension. Patient denies any fever, chills, headache, change in vision, syncope or near syncope. Denies any chest pain, back pain, shortness of breath or cough. Denies any abdominal pain, vomiting, diarrhea, constipation or dysuria. Has not noted any blood in urine or stool. Patient has been eating and drinking appropriately. Review of systems: As per history of present illness and below otherwise all systems reviewed and negative. Past medical history: As per history of present illness and as reviewed below otherwise noncontributory. Surgical history: As per history of present illness and as reviewed below otherwise noncontributory. Social history: See social history for further information Family history: As per history of present illness and as reviewed below otherwise noncontributory. Physical exam: General: Well developed and well nourished. Alert and orientated x 3. Nontoxic in appearance and in no acute distress. Vital signs are stable and have been reviewed by me. Nursing notes were reviewed. HEENT: Atraumatic, normocephalic, pupils equal and reactive bilaterally, negative for conjunctival pallor or scleral icterus, mucous membranes moist, TMs normal bilaterally, throat clear, neck supple, nontender, trachea midline. No drooling or trismus noted. No meningeal signs. No hot potato voice noted. Lungs: Clear to auscultation bilaterally. No wheezes, rales, or rhonchi. Chest nontender. Normal work of breathing, no accessory muscles used. Heart: S1S2, regular rate and rhythm without overt murmur, gallops, or rubs. No JVD. No peripheral edema Abdomen: Soft, nondistended, nontender. Normoactive bowel sounds. Negative for masses or costovertebral tenderness. Skin: Intact, warm, dry. No lesions or rashes noted. Hematologic: No petechiae or purpra. Mucosa appropriate color and normal nail bed color and refill. Extremities: Atraumatic, moves all extremities per self without difficulty or deficits, negative for cords or calf pain. Neurovascular unremarkable. Neuro: Awake, alert, oriented. Cranial nerves II through XII unremarkable. Cerebellum unremarkable. Motor and sensory unremarkable throughout. Exam nonfocal. Psychiatric: Mood and affect are appropriate. Normal thought process. Answering questions appropriately. Notes: *This patient was seen and evaluated during the 2019 SARS-CoV-2 novel coronavirus pandemic period. Community viral transmission is ongoing at time of this encounter and the emergency department is operating under pandemic response procedures. Patient had 3 [facility] PHYSICAL THERAPY TECHNICIAN. Patient does have EKG changes in V1 and V2 although she denies any chest pain or SOB. Will repeat a second troponin and continue to monitor. Unremarkable noncontrast head CT. Chest x-ray unremarkable. I have talked with the patient about today's findings, in addition to providing specific details for plan of care. She continues to deny and chest pain or SOB. Repeat Troponin is negative. Blood pressure has been good while here. Dr Nobles, hospitalist on-call, was consulted. Will admit patient to Med/Surg with t elemetry for further care and management. Patient remains pain free. Diagnostics: CBC, CMP, UA, Troponin, EKG, CXR, Head CT Therapeutics: SL, [employer] Collector Impression: Uncontrolled hypertension EKG changes Plan: Observation admission with telemetry Definitive disposition and diagnosis as appropriate pending reevaluation and review of above. - Related Data Allergies Allergy/AdvReac Type Severity Reaction Status Date / Time levofloxacin [From Levaquin] Allergy Severe Pain Verified 05/15/20 14:38 tramadol Allergy Intermediate Other Verified 05/15/20 14:38 latex Allergy Mild Other Verified 05/15/20 14:38 cetirizine [From Zyrtec] Allergy Unknown Other Verified 05/15/20 14:38 chlordiazepoxide Allergy Unknown Other Verified 05/15/20 14:38 nitrofurantoin Allergy Unknown Other Verified 05/15/20 14:38 [From Macrobid] sulfamethoxazole Allergy Unknown Other Verified 05/15/20 14:38 [From Septra] topiramate Allergy Unknown Other Verified 05/15/20 14:38 trimethoprim [From Septra] Allergy Unknown Other Verified 05/15/20 14:38 Quinolones AdvReac Unknown Other Verified 05/15/20 14:38 codeine AdvReac Other Verified 05/15/20 14:38 iodine AdvReac Other Verified 05/15/20 14:38 montelukast [From Singulair] AdvReac Other Verified 05/15/20 14:38 morphine AdvReac Other Verified 05/15/20 14:38 oxycodone [From OxyContin] AdvReac Other Verified 05/15/20 14:38 pantoprazole [From Protonix] AdvReac Other Verified 05/15/20 14:38 Home Meds: Home Meds ALPRAZolam [Xanax] 0.5 mg PO BID PRN 08/25/19 [History] Ascorbic Acid [Vitamin C] 500 mg PO DAILY 08/25/19 [History] Aspirin 81 mg PO DAILY 08/25/19 [History] Cholecalciferol (Vitamin D3) [Vitamin D3] 1 tab PO DAILY 08/25/19 [History] Cranberry 1 tab PO DAILY 08/25/19 [History] Famotidine 20 mg PO BID 08/25/19 [History] Fish Oil/[place]-3 Fatty Acids [Fish Oil 1,000 MG] 1 tab PO DAILY 08/25/19 [History] L.acidoph,Paracasei, B.lactis [Probiotic] 1 tab PO DAILY 08/25/19 [History] Levothyroxine Sodium [Levoxyl] 75 mcg PO DAILY 08/25/19 [History] Magnesium Oxide [Magnesium] 200 mg PO DAILY 08/25/19 [History] Nitroglycerin [Nitrostat] 0.4 mg PO ASDIRECTED PRN 08/25/19 [History] Rosuvastatin [Crestor] 5 mg PO DAILY 08/25/19 [History] Turmeric 40 mg PO DAILY 08/25/19 [History] Ubidecarenone [Co Q-10] 400 mg PO DAILY 08/25/19 [History] lisinopriL [Lisinopril] 2.5 mg PO BID 08/25/19 [History] Past Medical History Other HEENT History: sinitus Cardiovascular History: Reports: Angina, Hypertension Other Cardiovascular History: coronary artery spasm Other Gastrointestinal History: cholecystitis Other Genitourinary History: kideney mass, Musculoskeletal History: Reports: Fibromyalgia, Osteoarthritis Other Musculoskeletal History: bursitis Neurological History: Reports: Migraines Other Neuro History: memory loss, myalgia, Psychiatric History: Reports: Anxiety Endocrine/Metabolic History: Reports: Other (See Below) Other Endocrine/Metabolic History: "thyroid problems" Oncologic (Cancer) History: Reports: Basal Cell Carcinoma Other Oncologic History: lung nodule, Dermatologic History: Reports: Other (See Below) Other Dermatologic History: basal cell carcinoma - Infectious Disease History Infectious Disease History: Reports: Chicken Pox, Measles, Mumps - Past Surgical History Respiratory Surgical History: Reports: Other (See Below) Other Respiratory Surgeries/Procedures: "lung nodules calcified" GI Surgical History: Reports: Appendectomy, Cholecystectomy Female Surgical History: Reports: Hysterectomy, Other (See Below) Other Female Surgeries/Procedures: bladder and vaginal vault prolapse Neurological Surgical History: Reports: C-Spine, Spinal Fusion Musculoskeletal Surgical History: Reports: Shoulder Surgery Dermatological Surgical History: Reports: Other (See Below) Social & Family History - Family History Cardiac: Reports: Bypass, Heart Failure, Hypertension, MS, Other (See Below) Other Cardiac Family History: hardening of arteries Endocrine/Metabolic: Reports: Hypothyroidism - Tobacco Use Tobacco Use Status *Q: Never Tobacco User - Caffeine Use Caffeine Use: Reports: Coffee, Soda, Tea - Recreational Drug Use Recreational Drug Use: No ED ROS GENERAL - Review of Systems Review Of Systems: Comprehensive ROS is negative, except as noted in HPI. ED EXAM, GENERAL - Physical Exam Exam: See Below (See dictation) Course - Vital Signs Last Recorded V/S: Last Vital Signs Temp 97.1 F 05/15/20 14:33 Pulse 71 05/15/20 16:35 Resp 18 05/15/20 14:33 BP 129/73 05/15/20 16:35 Pulse Ox 97 05/15/20 16:35 - Orders/Labs/Meds Orders: Active Orders 24 hr Category Date Time Status Cardiac Monitoring [RC] . DIRECTED Care 05/15/20 14:53 Active EKG Documentation Completion [RC] STAT Care 05/15/20 14:53 Active EKG Documentation Completion [RC] STAT Care 05/15/20 17:43 Active UA RFX JUDITH AND CULT IF INDIC [URIN] Stat Lab 05/15/20 18:32 Received Sodium Chloride 0.9% [Saline Flush] Med 05/15/20 14:53 Active 10 ml FLUSH ASDIRECTED PRN Sodium Chloride 0.9% [Saline Flush] Med 05/15/20 14:53 Active 2.5 ml FLUSH ASDIRECTED PRN Saline Lock Insert [OM.PC] Stat Oth 05/15/20 14:53 Ordered Medication Orders Sodium Chloride (Sodium Chloride 0.9% 10 Ml Syringe) 10 ml FLUSH ASDIRECTED PRN PRN Reason: Keep Vein Open Last Admin: 05/15/20 15:02 Dose: 10 ml Documented by: [email or web address] Sodium Chloride (Sodium Chloride 0.9% 2.5 Ml Syringe) 2.5 ml FLUSH ASDIRECTED PRN PRN Reason: Keep Vein Open Last Admin: 05/15/20 15:02 Dose: 2.5 ml Documented by: [email or web address] Labs: Laboratory Tests 05/15/20 05/15/20 05/15/20 Range/Units 15:09 15:22 15:22 WBC 7.19 (4.0-11.0) K/uL RBC 4.89 (4.30-5.90) M/uL Hgb 14.0 (12.0-16.0) g/dL Hct 42.7 (36.0-46.0) % MCV 87.3 (80.0-98.0) fL MCH 28.6 (27.0-32.0) pg MCHC 32.8 (31.0-37.0) g/dL RDW Std Deviation 43.0 (28.0-62.0) fl RDW Coeff of [place]isel 13 (11.0-15.0) % Plt Count 290 (150-400) K/uL MPV 11.00 (7.40-12.00) fL Neut % (Auto) 58.0 (48.0-80.0) % Lymph % (Auto) 31.0 (16.0-40.0) % [place] % (Auto) 9.9 (0.0-15.0) % Eos % (Auto) 0.8 (0.0-7.0) % Baso % (Auto) 0.3 (0.0-1.5) % Neut # (Auto) 4.2 (1.4-5.7) K/uL Lymph # (Auto) 2.2 (0.6-2.4) K/uL [place] # (Auto) 0.7 (0.0-0.8) K/uL Eos # (Auto) 0.1 (0.0-0.7) K/uL Baso # (Auto) 0.0 (0.0-0.1) K/uL Nucleated RBC % 0.0 /100WBC Nucleated RBCs # 0 K/uL INR Sodium 141 (136-145) mmol/L Potassium 3.7 (3.5-5.1) mmol/L Chloride 107 (98-107) mmol/L Carbon Dioxide 28.5 (21.0-32.0) mmol/L BUN 12 (7.0-18.0) mg/dL Creatinine 0.8 (0.6-1.0) mg/dL Est Cr Clr Drug Dosing 59.72 mL/min Estimated GFR (MDRD) > 60.0 ml/min Glucose 76 (74-106) mg/dL Calcium 9.3 (8.5-10.1) mg/dL Total Bilirubin 0.9 (0.2-1.0) mg/dL AST 20 (15-37) IU/L ALT 26 (14-63) IU/L Alkaline Phosphatase 76 (46-116) U/L Troponin I < 0.050 (0.000-0.056) ng/mL Total Protein 7.0 (6.4-8.2) g/dL Albumin 3.6 (3.4-5.0) g/dL Globulin 3.4 (2.6-4.0) g/dL Albumin/Globulin Ratio 1.1 (0.9-1.6) SARS-CoV-2 RNA (SHAUNNA) NEGATIVE (NEGATIVE) 05/15/20 05/15/20 Range/Units 15:22 18:00 WBC (4.0-11.0) K/uL RBC (4.30-5.90) M/uL Hgb (12.0-16.0) g/dL Hct (36.0-46.0) % MCV (80.0-98.0) fL MCH (27.0-32.0) pg MCHC (31.0-37.0) g/dL RDW Std Deviation (28.0-62.0) fl RDW Coeff of [place] (11.0-15.0) % Plt Count (150-400) K/uL MPV (7.40-12.00) fL Neut % (Auto) (48.0-80.0) % Lymph % (Auto) (16.0-40.0) % [place] % (Auto) (0.0-15.0) % Eos % (Auto) (0.0-7.0) % Baso % (Auto) (0.0-1.5) % Neut # (Auto) (1.4-5.7) K/uL Lymph # (Auto) (0.6-2.4) K/uL [place] # (Auto) (0.0-0.8) K/uL Eos # (Auto) (0.0-0.7) K/uL Baso # (Auto) (0.0-0.1) K/uL Nucleated RBC % /100WBC Nucleated RBCs # K/uL INR 0.97 Sodium (136-145) mmol/L Potassium (3.5-5.1) mmol/L Chloride (98-107) mmol/L Carbon Dioxide (21.0-32.0) mmol/L BUN (7.0-18.0) mg/dL Creatinine (0.6-1.0) mg/dL Est Cr Clr Drug Dosing mL/min Estimated GFR (MDRD) ml/min Glucose (74-106) mg/dL Calcium (8.5-10.1) mg/dL Total Bilirubin (0.2-1.0) mg/dL AST (15-37) IU/L ALT (14-63) IU/L Alkaline Phosphatase (46-116) U/L Troponin I < 0.050 (0.000-0.056) ng/mL Total Protein (6.4-8.2) g/dL Albumin (3.4-5.0) g/dL Globulin (2.6-4.0) g/dL Albumin/Globulin Ratio (0.9-1.6) SARS-CoV-2 RNA (SHAUNNA) (NEGATIVE) Meds: Medications Generic Name Dose Route Start Last Admin Trade Name Freq PRN Reason Stop Dose Admin Sodium Chloride 10 ml 05/15/20 14:53 05/15/20 15:02 Sodium Chloride 0.9% 10 Ml Syringe FLUSH 10 ml ASDIRECTED PRN Administration Keep Vein Open Sodium Chloride 2.5 ml 05/15/20 14:53 05/15/20 15:02 Sodium Chloride 0.9% 2.5 Ml Syringe FLUSH 2.5 ml ASDIRECTED PRN Administration Keep Vein Open Discontinued Medications Generic Name Dose Route Start Last Admin Trade Name Freq PRN Reason Stop Dose Admin Aspirin 324 mg 05/15/20 16:22 05/15/20 16:54 Aspirin 81 Mg Tab.Chew PO 05/15/20 16:23 324 mg ONETIME ONE Administration Departure - Departure Time of Disposition: 18:41 Disposition: Refer to Observation Clinical Impression: Acute electrocardiogram changes Referrals: Meek Dobbs MD [Primary Care Provider] - Forms: ED Department Discharge Sepsis Event Note (ED) - Evaluation Sepsis Screening Result: No Definite Risk - Focused Exam Vital Signs: Vital Signs Temp Pulse Resp BP Pulse Ox 05/15/20 16:35 71 129/73 97 05/15/20 14:33 97.1 F 73 18 129/69 99 - My Orders Last 24 Hours: My Active Orders 05/15/20 14:53 Cardiac Monitoring [RC] . DIRECTED EKG Documentation Completion [RC] STAT Sodium Chloride 0.9% [Saline Flush] 10 ml FLUSH ASDIRECTED PRN Sodium Chloride 0.9% [Saline Flush] 2.5 ml FLUSH ASDIRECTED PRN Saline Lock Insert [OM.PC] Stat 05/15/20 17:43 EKG Documentation Completion [RC] STAT 05/15/20 18:32 UA RFX JUDITH AND CULT IF INDIC [URIN] Stat - Assessment/Plan Last 24 Hours: My Active Orders 05/15/20 14:53 Cardiac Monitoring [RC] . DIRECTED EKG Documentation Completion [RC] STAT Sodium Chloride 0.9% [Saline Flush] 10 ml FLUSH ASDIRECTED PRN Sodium Chloride 0.9% [Saline Flush] 2.5 ml FLUSH ASDIRECTED PRN Saline Lock Insert [OM.PC] Stat 05/15/20 17:43 EKG Documentation Completion [RC] STAT 05/15/20 18:32 UA RFX JUDITH AND CULT IF INDIC [URIN] Stat
[2020-05-15 15:58] LABS: BLOOD UREA NITROGEN,BUN 12 mg/dL (7.0-18.0); CARBON DIOXIDE,CO2 28.5 mmol/L (21.0-32.0); CHLORIDE,CL 107 mmol/L (98-107); GLUCOSE RANDOM 76 mg/dL (74-106); POTASSIUM,K 3.7 mmol/L (3.5-5.1); SODIUM,NA 141 mmol/L (136-145)
--- NOTE | 2020-05-15 16:13 | PCM.EKG ---
#1 Interpretation EKG Date: 05/15/20 Time: 16:04 Rhythm: NSR Rate (Beats/Min): 64 [place]: Normal P-Wave: Enlarged (214) QRS: Normal ST-T: Other (elevations in V1 and V2 which were seen on prior EKG but are more pronounced today) QT: Normal VT/PQ Interval: 214 Comparison: Change From Previous EKG EKG Interpretation Comments: ST elevations in V1 and V2 are more pronounced than on prior, however I do not see any reciprocal changes
[2020-05-15] MEDS ORDERED: Aspirin 81 MG Tab.Chew PO ONE (16:22)
--- NOTE | 2020-05-15 16:29 | CR ---
INDICATION: Dizziness TECHNIQUE: Chest 1 view. COMPARISON: 08/25/2019 FINDINGS: Cardiovascular and mediastinum: Heart size and vasculature are normal in caliber and appearance. Mediastinum is within normal limits. Lungs and pleural space: Lungs are clear. No sign of infiltrate. Stable small probable calcified granulomas right upper lobe. No sign of pleural effusion. No pneumothorax. Bones and soft tissues: No significant findings. IMPRESSION: Unremarkable chest. Dictated by Pacheco Sethi MD @ May 15 2020 4:27PM Signed by Dr. Pacheco Sethi @ May 15 2020 4:28PM
--- NOTE | 2020-05-15 16:44 | CT ---
INDICATION: Dizziness TECHNIQUE: CT head without contrast. COMPARISON: None/ FINDINGS: CSF spaces: Within normal limits for age. Brain parenchyma: The carr-white differentiation is normal. No sign of mass, hemorrhage, or midline shift. Skull base and calvarium: The visualized paranasal sinuses and mastoid air cells demonstrate no acute or significant findings. The visualized orbits are grossly unremarkable. No skull fractures. IMPRESSION: Unremarkable noncontrast head CT. Please note that all CT scans at this facility use dose modulation, iterative reconstruction, and/or weight-based dosing when appropriate to reduce radiation dose to as low as reasonably achievable. Dictated by Pacheco Sethi MD @ May 15 2020 4:43PM Signed by Dr. Pacheco Sethi @ May 15 2020 4:43PM
--- NOTE | 2020-05-15 18:39 | PCM.EKG ---
#1 Interpretation EKG Date: 05/15/20 Time: 18:34 Rhythm: NSR Rate (Beats/Min): 66 [place]: Normal P-Wave: Present QRS: Normal ST-T: Other (ST elevations in V1 and V2 without reciprocal changes, likely secondary to intraventricular conduction delay, no change from prior 3 hours ago.) QT: Normal NV/PQ Interval: 207 EKG Interpretation Comments: No change from prior earlier today
[2020-05-15] MEDS ORDERED: Famotidine 20 MG Tab PO PRN (22:19)
[2020-05-15] MEDS ORDERED: ALPRAZolam 0.5 MG Tab PO PRN (22:19)
--- NOTE | 2020-05-15 22:56 | PCM.HP.2 ---
H&P History of Present Illness - General Date of Service: 05/15/20 Admit Problem/Dx: Admission Diagnosis/Problem Admission Diagnosis/Problem Fatigue - History of Present Illness Initial Comments - Free Text/Narative: 69 yo female 68-year-old female with history of fibromyalgia, Brugada syndrome, HTN, CAD who woke up at 2 am this morning not feeling well. PAtient reports palpitations of feeling her heart beat in her head. She had haw and left arm pain. She noted her blood pressure was above 200/100. Her heart rate was 120. She took lisinopril and nitro. Her blood pressure did improve and symptoms did get better. She was seen at [facility] who referred her to the ER who then referred her for observation. Her troponin was negative. She does have persistent ST elevations in V1 V2 which could be related to her Brugada syndrome. She follows Dr. Cox who has referred her to EP study but due to the pandemic she has not gone to [place] to have this done. Headache Pain Score (Numeric/FACES): 5 - Related Data Allergies/Adverse Reactions: Allergies Allergy/AdvReac Type Severity Reaction Status Date / Time levofloxacin [From Levaquin] Allergy Severe Anaphylactic Verified 05/15/20 21:33 Shock latex Allergy Mild Itching Verified 05/15/20 21:33 cetirizine [From Zyrtec] Allergy Unknown Other Verified 05/15/20 21:33 chlordiazepoxide Allergy Unknown Other Verified 05/15/20 21:33 nitrofurantoin Allergy Unknown Other Verified 05/15/20 21:33 [From Macrobid] sulfamethoxazole Allergy Unknown Other Verified 05/15/20 21:33 [From Septra] topiramate Allergy Unknown Other Verified 05/15/20 21:33 trimethoprim [From Septra] Allergy Unknown Other Verified 05/15/20 21:33 tramadol AdvReac Intermediate Headache Verified 05/15/20 21:33 Quinolones AdvReac Unknown Other Verified 05/15/20 21:33 codeine AdvReac Other Verified 05/15/20 21:33 iodine AdvReac Other Verified 05/15/20 21:33 montelukast [From Singulair] AdvReac Hallucinati Verified 05/15/20 21:33 ons morphine AdvReac Other Verified 05/15/20 21:33 oxycodone [From OxyContin] AdvReac Other Verified 05/15/20 21:33 pantoprazole [From Protonix] AdvReac Chest Pain Verified 05/15/20 21:33 Home Medications: Home Meds ALPRAZolam [Xanax] 0.5 mg PO BID PRN 08/25/19 [History] Ascorbic Acid [Vitamin C] 500 mg PO BID 08/25/19 [History] Aspirin 81 mg PO DAILY 08/25/19 [History] Cholecalciferol (Vitamin D3) [Vitamin D3] 1 tab PO DAILY 08/25/19 [History] Cranberry 1 tab PO DAILY 08/25/19 [History] Famotidine 20 mg PO BID PRN 08/25/19 [History] Fish Oil/[place]-3 Fatty Acids [Fish Oil 1,000 MG] 1 tab PO DAILY 08/25/19 [History] L.acidoph,Paracasei, B.lactis [Probiotic] 1 tab PO DAILY 08/25/19 [History] Levothyroxine Sodium [Levoxyl] 75 mcg PO DAILY 08/25/19 [History] Magnesium Oxide [Magnesium] 200 mg PO DAILY 08/25/19 [History] Nitroglycerin [Nitrostat] 0.4 mg PO ASDIRECTED PRN 08/25/19 [History] Rosuvastatin [Crestor] 5 mg PO DAILY 08/25/19 [History] Turmeric 500 mg PO DAILY 08/25/19 [History] Ubidecarenone [Co Q-10] 200 mg PO DAILY 08/25/19 [History] lisinopriL [Lisinopril] 2.5 mg PO BID 08/25/19 [History] Past Medical History Other HEENT History: sinitus Cardiovascular History: Reports: Angina, Hypertension Other Cardiovascular History: coronary artery spasm Other Gastrointestinal History: cholecystitis Other Genitourinary History: kideney mass, Musculoskeletal History: Reports: Fibromyalgia, Osteoarthritis Other Musculoskeletal History: bursitis Neurological History: Reports: Migraines Other Neuro History: memory loss, myalgia, Psychiatric History: Reports: Anxiety Endocrine/Metabolic History: Reports: Other (See Below) Other Endocrine/Metabolic History: "thyroid problems" Oncologic (Cancer) History: Reports: Basal Cell Carcinoma Other Oncologic History: lung nodule, Dermatologic History: Reports: Other (See Below) Other Dermatologic History: basal cell carcinoma - Infectious Disease History Infectious Disease History: Reports: Chicken Pox, Measles, Mumps - Past Surgical History Respiratory Surgical History: Reports: Other (See Below) Other Respiratory Surgeries/Procedures: "lung nodules calcified" GI Surgical History: Reports: Appendectomy, Cholecystectomy Female Surgical History: Reports: Hysterectomy, Other (See Below) Other Female Surgeries/Procedures: bladder and vaginal vault prolapse Neurological Surgical History: Reports: C-Spine, Spinal Fusion Musculoskeletal Surgical History: Reports: Shoulder Surgery Dermatological Surgical History: Reports: Other (See Below) Social & Family History - Family History Cardiac: Reports: Bypass, Heart Failure, Hypertension, [place], Other (See Below) Other Cardiac Family History: hardening of arteries Endocrine/Metabolic: Reports: Hypothyroidism - Tobacco Use Tobacco Use Status *Q: Never Tobacco User - Caffeine Use Caffeine Use: Reports: Coffee, Soda, Tea - Recreational Drug Use Recreational Drug Use: No H&P Review of Systems - Review of Systems: Review Of Systems: Comprehensive ROS is negative, except as noted in HPI. Exam - Exam Exam: See Below - Vital Signs Vital Signs: Last Vital Signs Temp 36.7 C 05/15/20 19:40 Pulse 77 05/15/20 19:40 Resp 14 05/15/20 19:40 BP 106/57 L 05/15/20 19:40 Pulse Ox 99 05/15/20 19:40 Weight: 74.389 kg - Exam General: Alert, Oriented HEENT: Mucosa Moist & [place] Lungs: Clear to Auscultation, Normal Respiratory Effort Cardiovascular: Regular Rate, Regular Rhythm GI/Abdominal Exam: Normal Bowel Sounds, Soft, Non-Tender Extremities: Non-Tender, No Pedal Edema Skin: Warm, Dry, Intact Neurological: Cranial Nerves Intact - Patient Data Lab Results Last 24 hrs: Laboratory Results - last 24 hr 05/15/20 05/15/20 05/15/20 Range/Units 15:09 15:22 15:22 WBC 7.19 (4.0-11.0) K/uL RBC 4.89 (4.30-5.90) M/uL Hgb 14.0 (12.0-16.0) g/dL Hct 42.7 (36.0-46.0) % MCV 87.3 (80.0-98.0) fL MCH 28.6 (27.0-32.0) pg MCHC 32.8 (31.0-37.0) g/dL RDW Std Deviation 43.0 (28.0-62.0) fl RDW Coeff of Yisel 13 (11.0-15.0) % Plt Count 290 (150-400) K/uL MPV 11.00 (7.40-12.00) fL Neut % (Auto) 58.0 (48.0-80.0) % Lymph % (Auto) 31.0 (16.0-40.0) % [place] % (Auto) 9.9 (0.0-15.0) % Eos % (Auto) 0.8 (0.0-7.0) % Baso % (Auto) 0.3 (0.0-1.5) % Neut # (Auto) 4.2 (1.4-5.7) K/uL Lymph # (Auto) 2.2 (0.6-2.4) K/uL [place] # (Auto) 0.7 (0.0-0.8) K/uL Eos # (Auto) 0.1 (0.0-0.7) K/uL Baso # (Auto) 0.0 (0.0-0.1) K/uL Nucleated RBC % 0.0 /100WBC Nucleated RBCs # 0 K/uL INR Sodium 141 (136-145) mmol/L Potassium 3.7 (3.5-5.1) mmol/L Chloride 107 (98-107) mmol/L Carbon Dioxide 28.5 (21.0-32.0) mmol/L BUN 12 (7.0-18.0) mg/dL Creatinine 0.8 (0.6-1.0) mg/dL Est Cr Clr Drug Dosing 59.72 mL/min Estimated GFR (MDRD) > 60.0 ml/min Glucose 76 (74-106) mg/dL Calcium 9.3 (8.5-10.1) mg/dL Total Bilirubin 0.9 (0.2-1.0) mg/dL AST 20 (15-37) IU/L ALT 26 (14-63) IU/L Alkaline Phosphatase 76 (46-116) U/L Troponin I < 0.050 (0.000-0.056) ng/mL Total Protein 7.0 (6.4-8.2) g/dL Albumin 3.6 (3.4-5.0) g/dL Globulin 3.4 (2.6-4.0) g/dL Albumin/Globulin Ratio 1.1 (0.9-1.6) Urine Color Urine Appearance Urine pH (5.0-8.0) Ur Specific [place] (1.001-1.035) Urine Protein (NEGATIVE) mg/dL Urine Glucose (UA) (NEGATIVE) mg/dL Urine Ketones (NEGATIVE) mg/dL Urine Occult Blood (NEGATIVE) Urine Nitrite (NEGATIVE) Urine Bilirubin (NEGATIVE) Urine Urobilinogen (<2.0) EU/dL Ur Leukocyte Esterase (NEGATIVE) Urine RBC (0-2/HPF) Urine WBC (0-5/HPF) Ur Epithelial Cells (NONE-FEW) Urine Bacteria (NEGATIVE) SARS-CoV-2 RNA (SHAUNNA) NEGATIVE (NEGATIVE) 05/15/20 05/15/20 05/15/20 Range/Units 15:22 18:00 18:32 WBC (4.0-11.0) K/uL RBC (4.30-5.90) M/uL Hgb (12.0-16.0) g/dL Hct (36.0-46.0) % MCV (80.0-98.0) fL MCH (27.0-32.0) pg MCHC (31.0-37.0) g/dL RDW Std Deviation (28.0-62.0) fl RDW Coeff of [place]isel (11.0-15.0) % Plt Count (150-400) K/uL MPV (7.40-12.00) fL Neut % (Auto) (48.0-80.0) % Lymph % (Auto) (16.0-40.0) % [place] % (Auto) (0.0-15.0) % Eos % (Auto) (0.0-7.0) % Baso % (Auto) (0.0-1.5) % Neut # (Auto) (1.4-5.7) K/uL Lymph # (Auto) (0.6-2.4) K/uL [place] # (Auto) (0.0-0.8) K/uL Eos # (Auto) (0.0-0.7) K/uL Baso # (Auto) (0.0-0.1) K/uL Nucleated RBC % /100WBC Nucleated RBCs # K/uL INR 0.97 Sodium (136-145) mmol/L Potassium (3.5-5.1) mmol/L Chloride (98-107) mmol/L Carbon Dioxide (21.0-32.0) mmol/L BUN (7.0-18.0) mg/dL Creatinine (0.6-1.0) mg/dL Est Cr Clr Drug Dosing mL/min Estimated GFR (MDRD) ml/min Glucose (74-106) mg/dL Calcium (8.5-10.1) mg/dL Total Bilirubin (0.2-1.0) mg/dL AST (15-37) IU/L ALT (14-63) IU/L Alkaline Phosphatase (46-116) U/L Troponin I < 0.050 (0.000-0.056) ng/mL Total Protein (6.4-8.2) g/dL Albumin (3.4-5.0) g/dL Globulin (2.6-4.0) g/dL Albumin/Globulin Ratio (0.9-1.6) Urine Color YELLOW Urine Appearance CLEAR Urine pH 6.5 (5.0-8.0) Ur Specific [place] 1.020 (1.001-1.035) Urine Protein NEGATIVE (NEGATIVE) mg/dL Urine Glucose (UA) NEGATIVE (NEGATIVE) mg/dL Urine Ketones NEGATIVE (NEGATIVE) mg/dL Urine Occult Blood NEGATIVE (NEGATIVE) Urine Nitrite NEGATIVE (NEGATIVE) Urine Bilirubin NEGATIVE (NEGATIVE) Urine Urobilinogen 0.2 (<2.0) EU/dL Ur Leukocyte Esterase TRACE H (NEGATIVE) Urine RBC 0-2 (0-2/HPF) Urine WBC 1-5 (0-5/HPF) Ur Epithelial Cells FEW (NONE-FEW) Urine Bacteria FEW (NEGATIVE) SARS-CoV-2 RNA (SHAUNNA) (NEGATIVE) Result Diagrams: 05/15/20 15:22 05/15/20 15:22 Sepsis Event Note - Evaluation Sepsis Screening Result: No Definite Risk - Focused Exam Vital Signs: Vital Signs Temp Pulse Resp BP Pulse Ox 05/15/20 19:40 36.7 C 77 14 106/57 L 99 05/15/20 19:18 73 16 96/46 L 99 05/15/20 16:35 71 129/73 97 05/15/20 14:33 36.2 C 73 18 129/69 99 Problem List Initiated/Reviewed/Updated: Yes Orders Last 24hrs: Active Orders 24 hr Category Date Time Status Admission Status [Patient Status] [ADT] Stat ADT 05/15/20 18:47 Active Telemetry Monitoring [Cardiac Monitoring] [RC] Q8H Care 05/15/20 20:40 Active Regular Diet [DIET] Diet 05/15/20 Dinner Active CULTURE URINE [RM] Stat Lab 05/15/20 18:32 Received TROPONIN I [CHEM] Routine Lab 05/16/20 00:00 Ordered TROPONIN I [CHEM] Routine Lab 05/16/20 06:00 Ordered ALPRAZolam [Xanax] Med 05/15/20 22:19 Active 0.5 mg PO BID PRN Aspirin Med 05/16/20 09:00 Active 81 mg PO DAILY Famotidine [Pepcid] Med 05/15/20 22:19 Active 20 mg PO BID PRN Levothyroxine Med 05/16/20 07:30 Active 75 mcg PO ACBREAKFAST Rosuvastatin [Crestor] Med 05/16/20 09:00 Active 5 mg PO DAILY Sodium Chloride 0.9% [Saline Flush] Med 05/15/20 14:53 Active 10 ml FLUSH ASDIRECTED PRN Sodium Chloride 0.9% [Saline Flush] Med 05/15/20 14:53 Active 2.5 ml FLUSH ASDIRECTED PRN lisinopriL [Prinivil] Med 05/15/20 22:30 Active 2.5 mg PO BID Saline Lock Insert [OM.PC] Stat Oth 05/15/20 14:53 Ordered Medication Orders Alprazolam (Alprazolam 0.5 Mg Tab) 0.5 mg PO BID PRN PRN Reason: Anxiety Aspirin (Aspirin 81 Mg Tab.Chew) 81 mg PO DAILY RADHA Famotidine (Famotidine 20 Mg Tab) 20 mg PO BID PRN PRN Reason: Gas Levothyroxine Sodium (Levothyroxine 75 Mcg Tab) 75 mcg PO ACBREAKFAST RADHA Lisinopril (Lisinopril 5 Mg Tab) 2.5 mg PO BID RADHA Rosuvastatin Calcium (Rosuvastatin 10 Mg Tab) 5 mg PO DAILY RADHA Sodium Chloride (Sodium Chloride 0.9% 10 Ml Syringe) 10 ml FLUSH ASDIRECTED PRN PRN Reason: Keep Vein Open Last Admin: 05/15/20 15:02 Dose: 10 ml Documented by: [id number] Sodium Chloride (Sodium Chloride 0.9% 2.5 Ml Syringe) 2.5 ml FLUSH ASDIRECTED PRN PRN Reason: Keep Vein Open Last Admin: 05/15/20 15:02 Dose: 2.5 ml Documented by: [id number] Assessment/Plan Comment:: 69 yo female admitted for ACS rule out. She had serial negative cardiac enzymes and no events on telemetry overnight. She had no more episodes of elevated blood pressure or reoccurrence of her symptoms. Patient was discharged home to have follow up with Dr. Cox who will consider further stress testing or imaging.
[2020-05-15] MEDS ORDERED: Loratadine 10 MG Tab PO PRN ×2 (23:33)
[2020-05-15] MEDS: Lisinopril 5 MG Tab PO SCH (23:33)
[2020-05-16] MEDS ORDERED: Ondansetron 4 MG/2 ML SDV IVPUSH PRN (01:16)
[2020-05-16] MEDS ORDERED: Fluticasone Propionate Nasal Spray 16 GM Bottle NASBOTH PRN (01:17)
[2020-05-16] MEDS: Acetaminophen 325 MG Tab PO PRN ×2 (01:37→08:17)
[2020-05-16] MEDS ORDERED: Levothyroxine 75 MCG Tab PO SCH (07:30)
[2020-05-16] MEDS: Lisinopril 5 MG Tab PO SCH (08:19)
[2020-05-16] MEDS ORDERED: Rosuvastatin 10 MG Tab PO SCH (09:00)
[2020-05-16] MEDS ORDERED: Aspirin 81 MG Tab.Chew PO SCH (09:00)
== END 2020-05-16 11:45 | disposition home or self-care (01) ==
LOC: MW.ED 14:21 → MW.MS 18:47
PROVIDERS: ADMIT Internal Medicine; ATTEND Internal Medicine
DX: R53.83 Other fatigue (principal); I10 Essential (primary) hypertension; I25.10 Atherosclerotic heart disease of native coronary artery without angina pectoris; Z20.822 Contact with and (suspected) exposure to COVID-19; Z79.82 Long term (current) use of aspirin; Z79.890 Hormone replacement therapy; Z79.899 Other long term (current) drug therapy; Z91.040 Latex allergy status; Z88.8 Allergy status to other drugs, medicaments and biological substances; Z88.2 Allergy status to sulfonamides; Z88.6 Allergy status to analgesic agent; Z86.16 Personal history of COVID-19; Z98.890 Other specified postprocedural states
CPT/HCPCS: 36415; 70450; 71045; 80053; 81001; 84484; 85025; 85610; 87086; 93005; 99285; A9270; G0378; U0002; 93010; 99283

== ENCOUNTER 2020-08-08 08:08 | Day surgery (SDC) | payer MEDICARE, OTHER ==
[~2020-08-08 08:08] MED LIST: Glycopyrrolate 0.2 MG/ML SDV ONE; Lactated Ringers 1,000 ML IV SCH; Propofol 200 MG/20 ML SDV ONE; Sodium Chloride 0.9% 10 ML SDV IV PRN; Sodium Chloride 0.9% 10 ML Syringe FLUSH PRN; Sodium Chloride 0.9% 2.5 ML Syringe FLUSH PRN
--- NOTE | 2020-08-08 09:18 | PCM.PREANE ---
Preanesthetic Assessment - Anesthesia/Transfusion/Family Hx Anesthesia History: Prior Anesthesia Without Reaction Transfusion History: No Prior Transfusion(s) Additional History: Multiple allergies - Review of Systems General: No Symptoms Pulmonary: No Symptoms Cardiovascular: Palpitations, Other (Brugada syndrome) Gastrointestinal: No Symptoms Neurological: No Symptoms, Numbness, Other Other: Reports: None - Physical Assessment NPO Status Date: 08/08/20 NPO Status Time: 00:00 Vital Signs: Last Vital Signs Temp 97.7 F 08/08/20 08:26 Pulse 79 08/08/20 08:26 Resp 16 08/08/20 08:26 BP 133/84 08/08/20 08:26 Pulse Ox 97 08/08/20 08:26 Height: 5 ft 5 in Weight: 164 lb ASA Class: 3 Mental Status: Alert & Oriented x3 Airway Class: Mallampati = 2 Dentition: Reports: Normal Dentition Thyro-Mental Finger Breadths: 3 Mouth Opening Finger Breadths: 3 ROM/Head Extension: Full Lungs: Clear to Auscultation, Normal Respiratory Effort Cardiovascular: Regular Rate, Regular Rhythm - Allergies Allergies/Adverse Reactions: Allergies Allergy/AdvReac Type Severity Reaction Status Date / Time levofloxacin [From Levaquin] Allergy Severe Anaphylactic Verified 08/05/20 11:15 Shock latex Allergy Mild Itching Verified 08/05/20 11:15 cetirizine [From Zyrtec] Allergy Unknown Other Verified 08/05/20 11:15 chlordiazepoxide Allergy Unknown Other Verified 05/15/20 21:33 nitrofurantoin Allergy Unknown Other Verified 08/05/20 11:15 [From Macrobid] sulfamethoxazole Allergy Unknown Other Verified 08/05/20 11:15 [From Septra] topiramate Allergy Unknown Itching Verified 08/05/20 11:15 trimethoprim [From Septra] Allergy Unknown Other Verified 08/05/20 11:15 adhesive tape Allergy Rash Verified 08/05/20 11:15 amitriptyline Allergy Tachycardia Verified 08/05/20 11:15 azithromycin Allergy Cannot Verified 08/05/20 11:15 Remember celecoxib [From Celebrex] Allergy Hives Verified 08/05/20 11:15 cephalexin [From Keflex] Allergy Cannot Verified 08/05/20 11:15 Remember Iodinated Contrast Media Allergy Cannot Verified 08/05/20 11:15 Remember tramadol AdvReac Intermediate Headache Verified 08/05/20 11:15 Quinolones AdvReac Unknown Other Verified 08/05/20 11:15 codeine AdvReac Headache Verified 08/05/20 11:15 iodine AdvReac Other Verified 08/05/20 11:15 montelukast [From Singulair] AdvReac Hallucinati Verified 08/05/20 11:15 ons morphine AdvReac Other Verified 08/05/20 11:15 oxycodone [From OxyContin] AdvReac Other Verified 08/05/20 11:15 pantoprazole [From Protonix] AdvReac Chest Pain Verified 08/05/20 11:15 - Acknowledgements Anesthesia Type Planned: General Anesthesia Pt an Appropriate Candidate for the Planned Anesthesia: Yes Alternatives and Risks of Anesthesia Discussed w Pt/Guardian: Yes Pt/Guardian Understands and Agrees with Anesthesia Plan: Yes PreAnesthesia Questionnaire HEENT History: Reports: Cataract, Other (See Below) Other HEENT History: sinitus Cardiovascular History: Reports: Hypertension Other Cardiovascular History: states 2 valves have a small leak Respiratory History: Reports: Asthma Other Respiratory History: cannot use inhaler - it causes hypertension, hx nof lung nodules (calcified granulomas) Gastrointestinal History: Reports: GERD, Other (See Below) Other Gastrointestinal History: hx of gastritis Other Genitourinary History: hx of frequent UTI's- not recently [employer] History: Reports: Musculoskeletal History: Reports: Back Pain, Chronic, Fibromyalgia, Neck Pain, Chronic, Osteoarthritis, Other (See Below) Other Musculoskeletal History: hx of bursitis Neurological History: Reports: Headaches, Chronic, Vertigo Other Neuro History: memory loss, myalgia, Psychiatric History: Reports: Anxiety, Depression Endocrine/Metabolic History: Reports: Hypothyroidism, Osteopenia Other Endocrine/Metabolic History: "thyroid problems" Hematologic History: Reports: None Immunologic History: Reports: None Oncologic (Cancer) History: Reports: Basal Cell Carcinoma, Squamous Cell Ca rcinoma Other Oncologic History: skin cancer Dermatologic History: Reports: Other (See Below) Other Dermatologic History: rosacea - Infectious Disease History Infectious Disease History: Reports: Chicken Pox, Measles, Mumps - Past Surgical History Head Surgeries/Procedures: Reports: None HEENT Surgical History: Reports: Naso-Sinus Surgery, Tonsillectomy Other HEENT Surgeries/Procedures: hx of Mohs surgery- nose Cardiovascular Surgical History: Reports: None Respiratory Surgical History: Reports: None Other Respiratory Surgeries/Procedures: "lung nodules calcified" GI Surgical History: Reports: Appendectomy Female Surgical History: Reports: Hysterectomy, Other (See Below) Other Female Surgeries/Procedures: hx of bladder "sling" Endocrine Surgical History: Reports: None Neurological Surgical History: Reports: C-Spine, Spinal Fusion Other Neurological Surgeries/Procedures: has plate and screws Musculoskeletal Surgical History: Reports: Shoulder Surgery Other Musculoskeletal Surgeries/Procedures:: surgery for frozen shoulder and removal of bone spurs on left Oncologic Surgical History: Reports: None Dermatological Surgical History: Reports: Skin Biopsy - SUBSTANCE USE Tobacco Use Status *Q: Never Tobacco User Recreational Drug Use History: No - HOME MEDS Home Medications: Home Meds ALPRAZolam [Xanax] 0.5 mg PO BID PRN 08/25/19 [History] Ascorbic Acid [Vitamin C] 1,000 mg PO DAILY 08/25/19 [History] Aspirin 81 mg PO DAILY 08/25/19 [History] Cholecalciferol (Vitamin D3) [Vitamin D3] 1,000 unit PO DAILY 08/25/19 [History] Cranberry 200 mg PO DAILY 08/25/19 [History] Famotidine 20 mg PO BID PRN 08/25/19 [History] Fish Oil/[place]-3 Fatty Acids [Fish Oil 1,000 MG] 1 tab PO DAILY 08/25/19 [History] L.acidoph,Paracasei, B.lactis [Probiotic] 1 tab PO DAILY 08/25/19 [History] Levothyroxine Sodium [Levoxyl] 75 mcg PO DAILY 08/25/19 [History] Magnesium Oxide [Magnesium] 400 mg PO DAILY 08/25/19 [History] Nitroglycerin [Nitrostat] 0.4 mg PO ASDIRECTED PRN 08/25/19 [History] Rosuvastatin [Crestor] 5 mg PO DAILY 08/25/19 [History] Ubidecarenone [Co Q-10] 200 mg PO DAILY 08/25/19 [History] lisinopriL [Lisinopril] 2.5 mg PO QAM 08/25/19 [History] Ascorbic Acid/Collagen Hydr [Collagen Plus Vit C] 1 cap PO DAILY 08/05/20 [History] Baclofen 10 mg PO DAILY PRN 08/05/20 [History] Escitalopram Oxalate [Lexapro] 10 mg PO DAILY 08/05/20 [History] Fluticasone Propionate [Flonase Allergy Relief] 1 spray NASBOTH DAILY 08/05/20 [History] Loratadine [Claritin] 10 mg PO DAILY PRN 08/05/20 [History] lisinopriL [Lisinopril] 5 mg PO BEDTIME 08/05/20 [History] - CURRENT (IN HOUSE) MEDS Current Meds: Current Medications Lactated Ringer's (Ringers, Lactated) 1,000 mls @ 125 mls/hr IV ASDIRECTED RADHA Last Admin: 08/08/20 08:30 Dose: 125 mls/hr Documented by: Sodium Chloride (Sodium Chloride 0.9% 10 Ml Syringe) 10 ml FLUSH ASDIRECTED PRN PRN Reason: Keep Vein Open Sodium Chloride (Sodium Chloride 0.9% 2.5 Ml Syringe) 2.5 ml FLUSH ASDIRECTED PRN PRN Reason: Keep Vein Open Sodium Chloride (Sodium Chloride 0.9% 10 Ml Syringe) 10 ml FLUSH ASDIRECTED PRN PRN Reason: Keep Vein Open Sodium Chloride (Sodium Chloride 0.9% 2.5 Ml Syringe) 2.5 ml FLUSH ASDIRECTED PRN PRN Reason: Keep Vein Open Sodium Chloride (Sodium Chloride 0.9% 10 Ml Sdv) 10 ml IV ASDIRECTED PRN PRN Reason: IV Use Discontinued Medications Glycopyrrolate (Glycopyrrolate 0.2 Mg/Ml Sdv) Confirm Administered Dose 0.2 mg .ROUTE .STK-MED ONE Stop: 08/08/20 07:55 Lidocaine HCl (Lidocaine 1% 5 Ml Sdv) Confirm Administered Dose 5 ml .ROUTE .STK-MED ONE Stop: 08/08/20 07:55 Propofol (Propofol 200 Mg/20 Ml Sdv) Confirm Administered Dose 600 mg .ROUTE .STK-MED ONE Stop: 08/08/20 07:56
--- NOTE | 2020-08-08 10:12 | PCM.OPNOTE ---
- General Post-Op/Procedure Note Date of Surgery/Procedure: 08/08/20 Operative Procedure(s): Diagnostic EGD and screening colonoscopy Findings: Normal colonoscopy, esophagitis Pre Op Diagnosis: History of gastritis and colon polyps Post-Op Diagnosis: Esophagitis, normal colonoscopy Anesthesia Technique: [facility] [place] Primary Surgeon: Mattie Denton Condition: Good
--- NOTE | 2020-08-08 10:15 | PCM.POSTAN ---
POST ANESTHESIA ASSESSMENT - MENTAL STATUS Mental Status: Alert, Oriented - VITAL SIGNS Vital Signs: Last Vital Signs Temp 97.7 F 08/08/20 08:26 Pulse 79 08/08/20 08:26 Resp 16 08/08/20 08:26 BP 133/84 08/08/20 08:26 Pulse Ox 97 08/08/20 08:26 - RESPIRATORY Respiratory Status: Respiratory Rate WNL, Airway Patent, O2 Saturation Stable - CARDIOVASCULAR CV Status: Pulse Rate WNL, Blood Pressure Stable - GASTROINTESTINAL GI Status: No Symptoms - POST OP HYDRATION Hydration Status: Adequate & Stable
--- NOTE | 2020-08-08 10:18 | PCM48HPAN ---
Post Anesthesia Note - EVALUATION WITHIN 48HRS OF ANESTHETIC Vital Signs in Normal Range: Yes Patient Participated in Evaluation: Yes Respiratory Function Stable: Yes Airway Patent: Yes Cardiovascular Function Stable: Yes Hydration Status Stable: Yes Pain Control Satisfactory: Yes Nausea and Vomiting Control Satisfactory: Yes Mental Status Recovered: Yes Vital Signs: Last Vital Signs Temp 97.7 F 08/08/20 08:26 Pulse 79 08/08/20 08:26 Resp 16 08/08/20 08:26 BP 133/84 08/08/20 08:26 Pulse Ox 97 08/08/20 08:26
--- NOTE | 2020-08-08 15:12 | OR ---
SURGEON: MATTIE DENTON MD DATE OF PROCEDURE: 08/08/2020 PREOPERATIVE DIAGNOSES: History of colon polyps, family history of colon cancer, history of gastritis. POSTOPERATIVE DIAGNOSES: 1. Esophagitis. 2. Normal colonoscopy. PROCEDURE PERFORMED: Diagnostic esophagogastroduodenoscopy and colonoscopy. PRIMARY SURGEON: Mattie Denton MD ANESTHESIA: MAC. INSTRUMENTS USED: Olympus endoscope and colonoscope. EXTENT OF THE EXAMINATION: To the second portion of duodenum, to the cecum. PREPARATION: Good. LIMITATIONS: None. INDICATIONS FOR EXAMINATION: The patient is a 69-year-old female who presented to the clinic with complaints of intermittent bright red bleeding when wiping after bowel movements. She does have a history of colon polyps and is overdue for colonoscopy. Her mother had a history of colon cancer. She also has a history of gastritis and takes famotidine and Tums daily. The decision was made to proceed with both a diagnostic EGD and colonoscopy. I explained the procedure, expected perioperative course, and the risks. She verbalized understanding and wishes to proceed. PROCEDURE IN DETAIL: The patient was brought in to the endoscopy suite and placed in a left lateral decubitus position. A time-out was completed verifying the patient's name, age, date of , allergies, and procedure to be performed. Monitored anesthesia care was induced. A bite block was placed in the patient's mouth and a facemask was placed over the patient's mouth to provide oxygen throughout the case. After adequate sedation was achieved, a well-lubricated endoscope was placed in the patient's mouth and advanced under direct visualization to the second portion of duodenum. This appeared normal and a photograph was taken. The scope was then fully withdrawn while examining the color, texture, anatomy, and integrity mucosa of the upper GI tract. The duodenum appeared normal. The scope was brought into the stomach and a photograph was taken of the pylorus and GE junction. Both appeared grossly normal. Biopsies were taken of the gastric antrum, body, and fundus and sent for histologic review and H pylori testing. There was no evidence of inflammation or ulceration within the stomach. The scope was then brought into the distal esophagus. The Z-line appeared normal. Just above this, however, there were signs of some mild esophagitis. Biopsies were taken and sent to Pathology, labeled as esophageal biopsy. The remainder of the esophagus appeared normal. The scope was removed and this portion of the procedure terminated. A digital rectal exam was performed. This exam was within normal limits. A well-lubricated colonoscope was inserted into the rectum and advanced under direct visualization to the level of the cecum. The cecum was identified by both visual and anatomic landmarks. A photograph was taken of the cecal cap. However, I was unable to retroflex the scope within the cecum due to looping of the scope more proximally. The scope was then fully withdrawn while examining the color, texture, anatomy, and integrity of the mucosa from the cecum to the anal canal. The patient was found to have normal appearing colonic mucosa. The scope was then brought into the rectum and retroflexed to allow visualization of the anal canal opening. This appeared normal and a photograph was taken. The scope was then straightened out and fully withdrawn. The cecum to anus time was 8 minutes. The patient tolerated the procedure well and was transferred to the PACU in stable condition. ENDOSCOPIC DIAGNOSES: 1. Esophagitis. 2. Normal colonoscopy. RECOMMENDATION: Follow up in clinic in two weeks. LANEY MADERA /[id number]
== END 2020-08-08 11:04 | disposition home or self-care (01) ==
LOC: MW.SDS 08:08
PROVIDERS: ATTEND Surgery
DX: K21.00 Gastro-esophageal reflux disease with esophagitis, without bleeding (principal); K22.8 Other specified diseases of esophagus; K31.89 Other diseases of stomach and duodenum; K92.1 Melena; I10 Essential (primary) hypertension; J45.909 Unspecified asthma, uncomplicated; E03.9 Hypothyroidism, unspecified; E78.00 Pure hypercholesterolemia, unspecified; Z88.1 Allergy status to other antibiotic agents; Z88.2 Allergy status to sulfonamides; Z88.6 Allergy status to analgesic agent; Z88.8 Allergy status to other drugs, medicaments and biological substances; Z91.040 Latex allergy status; Z91.041 Radiographic dye allergy status; Z86.010 Personal history of colon polyps; Z80.0 Family history of malignant neoplasm of digestive organs; Z98.890 Other specified postprocedural states
CPT/HCPCS: 43239; 45378; 88305; 88342; J2704; J3490; J7120; 00813

== ENCOUNTER 2021-06-29 03:36 | Emergency (ER) | payer MEDICARE, OTHER ==
[2021-06-29] MEDS ORDERED: Alum Hydro/Mag Hydro/Simeth XS 15 ML, Lidocaine 2% 5 ML PO ONE ×2 (04:14)
[2021-06-29] MEDS ORDERED: Nitroglycerin 0.4 MG Tab.SL SL ONE (04:15)
[2021-06-29] MEDS ORDERED: Aluminum Hydroxide/Magnesium Hydroxide/Simethicone XS Susp 30 ML Cup ONE (04:18)
[2021-06-29 04:34] LABS: CARBON DIOXIDE,CO2 25.7 mmol/L (21.0-32.0); POTASSIUM,K 3.7 mmol/L (3.5-5.1)
[2021-06-29] MEDS ORDERED: LORazepam 1 MG Tab PO ONE (04:48)
[2021-06-29] MEDS: ALPRAZolam 0.5 MG Tab PO ONE ×2 (05:08→05:17)
== END 2021-06-29 06:51 | disposition home or self-care (01) ==
LOC: MW.ED 03:36
DX: R07.89 Other chest pain (principal); I10 Essential (primary) hypertension; E03.9 Hypothyroidism, unspecified; Z90.49 Acquired absence of other specified parts of digestive tract; Z90.710 Acquired absence of both cervix and uterus; Z79.899 Other long term (current) drug therapy; Z79.82 Long term (current) use of aspirin; Z88.1 Allergy status to other antibiotic agents; Z88.8 Allergy status to other drugs, medicaments and biological substances; Z91.040 Latex allergy status; Z88.2 Allergy status to sulfonamides; Z91.048 Other nonmedicinal substance allergy status; Z88.5 Allergy status to narcotic agent; Z91.041 Radiographic dye allergy status
CPT/HCPCS: 36415; 71045; 80053; 81001; 83690; 84484; 85025; 93005; 99284; A9270

== ENCOUNTER 2021-07-05 11:30 | Emergency (ER) | payer MEDICARE, OTHER | END 2021-07-05 12:39 | disposition home or self-care (01) | LOC: MW.ED 11:30 | DX: U07.1 COVID-19 (principal); I10 Essential (primary) hypertension; K21.9 Gastro-esophageal reflux disease without esophagitis; E03.9 Hypothyroidism, unspecified; Z91.040 Latex allergy status; Z88.1 Allergy status to other antibiotic agents; Z88.8 Allergy status to other drugs, medicaments and biological substances; Z91.048 Other nonmedicinal substance allergy status; Z88.5 Allergy status to narcotic agent; Z91.041 Radiographic dye allergy status; Z79.82 Long term (current) use of aspirin; Z79.899 Other long term (current) drug therapy | CPT/HCPCS: 99282; 99283 ==

== ENCOUNTER 2021-08-22 06:32 | Day surgery (SDC) | payer MEDICARE, OTHER ==
[~2021-08-22 06:32] MED LIST changes: -Glycopyrrolate 0.2 MG/ML SDV ONE; -Propofol 200 MG/20 ML SDV ONE; -Sodium Chloride 0.9% 10 ML SDV IV PRN; -Sodium Chloride 0.9% 10 ML Syringe FLUSH PRN; -Sodium Chloride 0.9% 2.5 ML Syringe FLUSH PRN
[2021-08-22] MEDS ORDERED: Propofol 200 MG/20 ML SDV ONE (07:25)
[2021-08-22] MEDS ORDERED: fentaNYL 250 MCG/5 ML SDV ONE (07:26)
[2021-08-22] MEDS ORDERED: HYDROmorphone 1 MG/ML Syringe IVPUSH PRN ×2 (07:29→10:15)
[2021-08-22] MEDS ORDERED: fentaNYL 50 MCG/ML SDV IVPUSH PRN (07:29)
[2021-08-22] MEDS ORDERED: Albuterol 0.083% 2.5 MG/3 ML Neb Soln NEB PRN (07:29)
[2021-08-22] MEDS ORDERED: Naloxone 0.4 MG/ML SDV IVPUSH PRN (07:29)
[2021-08-22] MEDS ORDERED: Ondansetron 4 MG/2 ML SDV IVPUSH PRN (07:29)
[2021-08-22] MEDS ORDERED: Metoclopramide 10 MG/2 ML SDV IVPUSH PRN (07:29)
[2021-08-22] MEDS ORDERED: Octyl 2-Cyanoacrylate 1 Tube ONE (07:36)
[2021-08-22] MEDS ORDERED: Bupivacaine 0.5% 30 ML SDV ONE (07:36)
[2021-08-22] MEDS ORDERED: ceFAZolin 1 GM Vial ONE (07:36)
[2021-08-22] MEDS ORDERED: Famotidine 20 MG/2 ML SDV ONE (08:00)
[2021-08-22] MEDS ORDERED: Scopolamine 1.5 MG Transdermal Patch ONE (08:00)
[2021-08-22] MEDS ORDERED: Scopolamine 1.5 MG Transdermal Patch TOP ONE (08:23)
[2021-08-22] MEDS ORDERED: Indocyanine Green 25 MG SDV ONE (08:30)
[2021-08-22] MEDS ORDERED: fentaNYL 100 MCG/2 ML SDV ONE ×2 (08:49→08:57)
[2021-08-22] MEDS ORDERED: ePHEDrine 50 MG/ML SDV ONE (08:58)
[2021-08-22] MEDS ORDERED: Glycopyrrolate 0.2 MG/ML SDV ONE (08:58)
[2021-08-22] MEDS ORDERED: Dexamethasone 4 MG/ML 5 ML MDV ONE (08:58)
[2021-08-22] MEDS ORDERED: Rocuronium 100 MG/10 ML MDV ONE (08:58)
[2021-08-22] MEDS ORDERED: Sugammadex Sodium 200 MG/2 ML VIAL ONE (08:58)
[2021-08-22] MEDS ORDERED: Ondansetron 4 MG/2 ML SDV ONE (08:58)
[2021-08-22] MEDS ORDERED: Lidocaine 2% Jelly 30 ML Tube ONE (08:59)
[2021-08-22] MEDS ORDERED: cefOXitin 100 ML ONE (08:59)
[2021-08-22] MEDS ORDERED: Acetaminophen/HYDROcodone 325-5 MG Tab PO PRN (10:15)
[2021-08-22] MEDS ORDERED: Lactated Ringers 1,000 ML IV SCH ×2 (10:15)
== END 2021-08-22 14:15 | disposition home or self-care (01) ==
LOC: MW.SDS 06:32
PROVIDERS: ATTEND Surgery
DX: K81.1 Chronic cholecystitis (principal); K82.8 Other specified diseases of gallbladder; F41.9 Anxiety disorder, unspecified; I25.10 Atherosclerotic heart disease of native coronary artery without angina pectoris; I10 Essential (primary) hypertension; E78.00 Pure hypercholesterolemia, unspecified; K21.9 Gastro-esophageal reflux disease without esophagitis; G62.9 Polyneuropathy, unspecified; I49.8 Other specified cardiac arrhythmias; E03.9 Hypothyroidism, unspecified; Z86.010 Personal history of colon polyps; Z86.59 Personal history of other mental and behavioral disorders; Z87.42 Personal history of other diseases of the female genital tract; Z88.8 Allergy status to other drugs, medicaments and biological substances; Z88.5 Allergy status to narcotic agent; Z90.49 Acquired absence of other specified parts of digestive tract; Z98.890 Other specified postprocedural states; Z80.0 Family history of malignant neoplasm of digestive organs
CPT/HCPCS: 47562; A9270; J0131; J0694; J1100; J2370; J2405; J2704; J2765; J3010; J3490; J7030; J7120; 00790; 99100; J0690

== ENCOUNTER 2022-01-18 21:28 | Emergency (ER) | payer MEDICARE, OTHER ==
[2022-01-18 22:36] LABS: CARBON DIOXIDE,CO2 27.2 mmol/L (21.0-32.0); POTASSIUM,K 3.8 mmol/L (3.5-5.1)
[2022-01-18] MEDS ORDERED: Acetaminophen 500 MG Tab PO ONE (23:08)
[2022-01-18 23:28] LABS: CORONAVIRUS COVID-19 NAA NEGATIVE (NEGATIVE); INFLUENZA A NAA NEGATIVE (NEGATIVE); INFLUENZA B NAA NEGATIVE (NEGATIVE); RESPIRATORY SYNCYTIAL VIR NAA NEGATIVE (NEGATIVE)
== END 2022-01-19 01:04 | disposition home or self-care (01) ==
LOC: MW.ED 21:28
DX: R51.9 Headache, unspecified (principal); R07.9 Chest pain, unspecified; I10 Essential (primary) hypertension; J45.909 Unspecified asthma, uncomplicated; K21.9 Gastro-esophageal reflux disease without esophagitis; E03.9 Hypothyroidism, unspecified; Z91.040 Latex allergy status; Z88.1 Allergy status to other antibiotic agents; Z88.8 Allergy status to other drugs, medicaments and biological substances; Z91.041 Radiographic dye allergy status; Z88.2 Allergy status to sulfonamides; Z88.5 Allergy status to narcotic agent; Z91.048 Other nonmedicinal substance allergy status; Z79.82 Long term (current) use of aspirin; Z79.899 Other long term (current) drug therapy; Z20.822 Contact with and (suspected) exposure to COVID-19
CPT/HCPCS: 0241U; 36415; 70450; 71045; 80053; 83735; 84484; 85025; 99284; A9270; 93010

== ENCOUNTER 2022-03-11 07:11 | Emergency (ER) | payer MEDICARE, OTHER | END 2022-03-11 09:08 | disposition home or self-care (01) | LOC: MW.ED 07:11 | DX: I10 Essential (primary) hypertension (principal); K21.9 Gastro-esophageal reflux disease without esophagitis; E03.9 Hypothyroidism, unspecified; Z91.040 Latex allergy status; Z88.1 Allergy status to other antibiotic agents; Z88.2 Allergy status to sulfonamides; Z91.041 Radiographic dye allergy status; Z88.5 Allergy status to narcotic agent; Z91.048 Other nonmedicinal substance allergy status; Z79.899 Other long term (current) drug therapy; Z79.82 Long term (current) use of aspirin | CPT/HCPCS: 36415; 80053; 84484; 85025; 93005; 99283 ==

== ENCOUNTER 2022-07-01 19:57 | Emergency (ER) | payer MEDICARE, OTHER ==
[2022-07-01] MEDS ORDERED: Diphtheria,Pertussis(Acell),Tetanus Vaccine 0.5 ML Syringe IM ONE (21:09)
[2022-07-01] MEDS ORDERED: Acetaminophen 500 MG Tab PO ONE (21:09)
== END 2022-07-01 23:40 | disposition home or self-care (01) ==
LOC: MW.ED 19:57
DX: S09.90XA Unspecified injury of head, initial encounter (principal); I10 Essential (primary) hypertension; J45.909 Unspecified asthma, uncomplicated; Z88.1 Allergy status to other antibiotic agents; Z91.040 Latex allergy status; Z88.8 Allergy status to other drugs, medicaments and biological substances; Z91.041 Radiographic dye allergy status; Z88.2 Allergy status to sulfonamides; Z88.5 Allergy status to narcotic agent; Z79.82 Long term (current) use of aspirin; Z79.899 Other long term (current) drug therapy; Z23 Encounter for immunization; W18.09XA Striking against other object with subsequent fall, initial encounter
CPT/HCPCS: 70450; 70486; 72125; 72128; 72131; 72192; 90471; 90715; 99283; A9270

== ENCOUNTER 2022-07-02 18:29 | Emergency (ER) | payer MEDICARE, OTHER ==
[2022-07-02] MEDS ORDERED: Sodium Chloride 0.9% 10 ML Syringe FLUSH PRN (19:51)
[2022-07-02] MEDS ORDERED: Sodium Chloride 0.9% 2.5 ML Syringe FLUSH PRN (19:51)
[2022-07-02] MEDS ORDERED: Acetaminophen 500 MG Tab PO ONE (19:52)
[2022-07-02] MEDS ORDERED: Sodium Chloride 0.9% 500 ML IV SCH (20:00)
[2022-07-02 20:27] LABS: BASOPHILS PERCENT AUTO 0.2 % (0.0-1.5); EOSINOPHILS ABSOLUTE AUTO 0.2 K/uL (0.0-0.7); HEMATOCRIT 38.5 % (36.0-46.0); HEMOGLOBIN 12.8 g/dL (12.0-16.0); LYMPHOCYTES ABSOLUTE AUTO 2.4 K/uL (0.6-2.4); LYMPHOCYTES PERCENT AUTO 30.5 % (16.0-40.0); MEAN CORPUSCULAR HEMOGLOBIN 27.7 pg (27.0-32.0); MEAN CORPUSCULAR HGB CONC 33.2 g/dL (31.0-37.0); MEAN CORPUSCULAR VOLUME 83.3 fL (80.0-98.0); MONOCYTES ABSOLUTE AUTO 0.8 K/uL (0.0-0.8); MONOCYTES PERCENT AUTO 10.1 % (0.0-15.0); NEUTROPHILS ABSOLUTE AUTO 4.5 K/uL (1.4-5.7); NEUTROPHILS PERCENT AUTO 56.2 % (48.0-80.0); NRBC ABSOLUTE 0 K/uL; PLATELET COUNT,PLT 311 K/uL (150-400); RED BLOOD CELL COUNT 4.62 M/uL (4.30-5.90); WHITE BLOOD CELL COUNT,WBC 8.01 K/uL (4.0-11.0)
[2022-07-02 20:39] LABS: INR 0.93 (0.86-1.11)
[2022-07-02 20:52] LABS: ALBUMIN 3.3 g/dL (3.4-5.0); BILIRUBIN TOTAL 0.6 mg/dL (0.2-1.0); CALCIUM 8.7 mg/dL (8.5-10.1); CARBON DIOXIDE,CO2 25.9 mmol/L (21.0-32.0); EST CRCL DRUG DOSING (CG) 46.43 mL/min; POTASSIUM,K 4.4 mmol/L (3.5-5.1); PROTEIN TOTAL,TP 6.7 g/dL (6.4-8.2)
[2022-07-02] MEDS ORDERED: methylPREDNISolone Sodium Succinate 125 MG/2 ML SDV IVPUSH ONE (21:05)
[2022-07-02] MEDS ORDERED: diphenhydrAMINE 50 MG/ML SDV IVPUSH ONE (21:05)
[2022-07-02] MEDS ORDERED: Iopamidol 755 MG/ML 500 ML Multipack Bottle IVPUSH STA (23:17)
== END 2022-07-03 02:39 | disposition home or self-care (01) ==
LOC: MW.ED 18:29
DX: R07.89 Other chest pain (principal); R06.02 Shortness of breath; I10 Essential (primary) hypertension; J45.909 Unspecified asthma, uncomplicated; K21.9 Gastro-esophageal reflux disease without esophagitis; E03.9 Hypothyroidism, unspecified; Z88.1 Allergy status to other antibiotic agents; Z91.040 Latex allergy status; Z88.8 Allergy status to other drugs, medicaments and biological substances; Z88.2 Allergy status to sulfonamides; Z91.048 Other nonmedicinal substance allergy status; Z91.041 Radiographic dye allergy status; Z88.5 Allergy status to narcotic agent; Z79.82 Long term (current) use of aspirin; Z79.899 Other long term (current) drug therapy
CPT/HCPCS: 36415; 71275; 74177; 80053; 84484; 85025; 85610; 96361; 96374; 96375; 99285; J1200; J2930; J3490; J7040; Q9967

== ENCOUNTER 2022-10-19 11:53 | Emergency (ER) | payer MEDICARE, OTHER ==
[2022-10-19] MEDS ORDERED: Sodium Chloride 0.9% 2.5 ML Syringe FLUSH PRN (11:57)
[2022-10-19] MEDS ORDERED: Sodium Chloride 0.9% 10 ML Syringe FLUSH PRN (11:57)
[2022-10-19 12:11] LABS: BASOPHILS PERCENT AUTO 0.3 % (0.0-1.5); EOSINOPHILS ABSOLUTE AUTO 0.3 K/uL (0.0-0.7); EOSINOPHILS PERCENT AUTO 4.6 % (0.0-7.0); HEMATOCRIT 42.8 % (36.0-46.0); HEMOGLOBIN 13.6 g/dL (12.0-16.0); LYMPHOCYTES ABSOLUTE AUTO 3.2 K/uL (0.6-2.4); MEAN CORPUSCULAR HEMOGLOBIN 26.9 pg (27.0-32.0); MEAN CORPUSCULAR HGB CONC 31.8 g/dL (31.0-37.0); MEAN CORPUSCULAR VOLUME 84.8 fL (80.0-98.0); MONOCYTES ABSOLUTE AUTO 0.6 K/uL (0.0-0.8); MONOCYTES PERCENT AUTO 8.6 % (0.0-15.0); NEUTROPHILS ABSOLUTE AUTO 3.1 K/uL (1.4-5.7); NEUTROPHILS PERCENT AUTO 42.5 % (48.0-80.0); NRBC ABSOLUTE 0 K/uL; PLATELET COUNT,PLT 346 K/uL (150-400); RED BLOOD CELL COUNT 5.05 M/uL (4.30-5.90)
[2022-10-19] MEDS ORDERED: Nitroglycerin 0.4 MG Tab.SL SL ONE ×2 (12:11→12:35)
[2022-10-19] MEDS ORDERED: Aluminum Hydroxide/Magnesium Hydroxide/Simethicone XS Susp 30 ML Cup PO ONE (12:35)
[2022-10-19 12:45] LABS: ALBUMIN 3.7 g/dL (3.4-5.0); BILIRUBIN TOTAL 0.4 mg/dL (0.2-1.0); CALCIUM 8.9 mg/dL (8.5-10.1); CARBON DIOXIDE,CO2 26.2 mmol/L (21.0-32.0); EST CRCL DRUG DOSING (CG) 45.76 mL/min; POTASSIUM,K 3.9 mmol/L (3.5-5.1); PROTEIN TOTAL,TP 7.3 g/dL (6.4-8.2)
[2022-10-19 13:02] LABS: CORONAVIRUS COVID-19 NAA NEGATIVE (NEGATIVE); INFLUENZA A NAA NEGATIVE (NEGATIVE); INFLUENZA B NAA NEGATIVE (NEGATIVE)
[2022-10-19 13:25] LABS: APPEARANCE,URINE CLEAR; BILIRUBIN,URINE NEGATIVE (NEGATIVE); COLOR,URINE YELLOW; GLUCOSE,URINE NEGATIVE (NEGATIVE); KETONES,URINE NEGATIVE (NEGATIVE); LEUKOCYTE ESTERASE,URINE NEGATIVE (NEGATIVE); NITRITE,URINE NEGATIVE (NEGATIVE); OCCULT BLOOD,URINE NEGATIVE (NEGATIVE); PH,URINE 6.5 (5.0-8.0); PROTEIN,URINE NEGATIVE (NEGATIVE); UROBILINOGEN,URINE 0.2 EU/dL (<2.0)
== END 2022-10-19 14:49 | disposition home or self-care (01) ==
LOC: MW.ED 11:53
DX: R07.9 Chest pain, unspecified (principal); I10 Essential (primary) hypertension; J45.909 Unspecified asthma, uncomplicated; E03.9 Hypothyroidism, unspecified; K21.9 Gastro-esophageal reflux disease without esophagitis; Z20.822 Contact with and (suspected) exposure to COVID-19; Z88.1 Allergy status to other antibiotic agents; Z88.2 Allergy status to sulfonamides; Z88.5 Allergy status to narcotic agent; Z88.6 Allergy status to analgesic agent; Z88.8 Allergy status to other drugs, medicaments and biological substances; Z91.040 Latex allergy status; Z91.048 Other nonmedicinal substance allergy status; Z91.09 Other allergy status, other than to drugs and biological substances; Z91.041 Radiographic dye allergy status
CPT/HCPCS: 0240U; 36415; 70450; 71045; 80053; 81003; 82947; 83880; 84484; 85025; 93005; 99285; A9270; J3490; 93010; 99283

== ENCOUNTER 2022-12-21 08:07 | Emergency (ER) | payer MEDICARE, OTHER ==
[2022-12-21] MEDS ORDERED: Sodium Chloride 0.9% 500 ML IV SCH (08:30)
[2022-12-21] MEDS ORDERED: diphenhydrAMINE 50 MG/ML SDV IVPUSH ONE (08:36)
[2022-12-21] MEDS ORDERED: methylPREDNISolone Sodium Succinate 125 MG/2 ML SDV IVPUSH ONE (08:36)
[2022-12-21 08:43] LABS: BASOPHILS ABSOLUTE AUTO 0.04 K/uL (0.00-0.20); BASOPHILS PERCENT AUTO 0.4 % (0.0-1.0); EOSINOPHILS ABSOLUTE AUTO 0.07 K/uL (0.00-0.45); EOSINOPHILS PERCENT AUTO 0.7 % (0.0-6.0); HEMATOCRIT 41.5 % (37.0-47.0); HEMOGLOBIN 14.2 g/dL (12.0-16.0); IMMATURE GRAN ABSOLUTE AUTO 0.03 K/uL (0.00-0.05); IMMATURE GRAN PERCENT AUTO 0.3 % (0.0-0.4); LYMPHOCYTES ABSOLUTE AUTO 2.81 K/uL (1.00-4.80); LYMPHOCYTES PERCENT AUTO 27.7 % (24.0-44.0); MEAN CORPUSCULAR HGB CONC 34.2 g/dL (32.0-36.0); MEAN CORPUSCULAR VOLUME 81.7 fL (83.0-99.0); MEAN PLATELET VOLUME 10.1 fL (9.4-12.3); MONOCYTES ABSOLUTE AUTO 0.85 K/uL (0.00-0.80); MONOCYTES PERCENT AUTO 8.4 % (0.0-8.0); NEUTROPHILS ABSOLUTE AUTO 6.35 K/uL (1.80-7.70); NEUTROPHILS PERCENT AUTO 62.5 % (41.0-71.0); PLATELET COUNT,PLT 366 K/uL (150-400); RED BLOOD CELL COUNT 5.08 M/uL (4.10-5.30); WHITE BLOOD CELL COUNT,WBC 10.15 K/uL (3.9-11.3)
[2022-12-21] MEDS ORDERED: Lisinopril 5 MG Tab PO ONE (08:57)
[2022-12-21 09:23] LABS: A/G RATIO 1.1 (0.9-1.6); BILIRUBIN TOTAL 0.7 mg/dL (0.2-1.0); CALCIUM 9.5 mg/dL (8.5-10.1); CARBON DIOXIDE,CO2 26.6 mmol/L (21.0-32.0); CREATININE 0.9 mg/dL (0.6-1.0); EST CRCL DRUG DOSING (CG) 50.84 mL/min; POTASSIUM,K 4.1 mmol/L (3.5-5.1); PROTEIN TOTAL,TP 7.7 g/dL (6.4-8.2); TSH ULTRASENSITIVE 4.16 uIU/mL (0.36-3.74)
[2022-12-21 10:11] LABS: APPEARANCE,URINE CLEAR; BILIRUBIN,URINE NEGATIVE (NEGATIVE); COLOR,URINE YELLOW; GLUCOSE,URINE NEGATIVE (NEGATIVE); KETONES,URINE NEGATIVE (NEGATIVE); LEUKOCYTE ESTERASE,URINE TRACE (NEGATIVE); NITRITE,URINE NEGATIVE (NEGATIVE); OCCULT BLOOD,URINE NEGATIVE (NEGATIVE); PH,URINE 5.5 (5.0-8.0); PROTEIN,URINE NEGATIVE (NEGATIVE); UROBILINOGEN,URINE 0.2 EU/dL (<2.0)
[2022-12-21 10:24] LABS: BACTERIA,URINE FEW (NEGATIVE); EPITHELIAL CELLS,URINE RARE (NONE-FEW); RBC,URINE NONE SEEN (0-2/HPF); WBC,URINE 0-1 (0-5/HPF)
[2022-12-21 10:25] LABS: MUCUS,URINE LIGHT (NONE-MOD)
[2022-12-21 10:48] LABS: CORONAVIRUS COVID-19 NAA NEGATIVE (NEGATIVE); INFLUENZA A NAA NEGATIVE (NEGATIVE); INFLUENZA B NAA NEGATIVE (NEGATIVE); RESPIRATORY SYNCYTIAL VIR NAA NEGATIVE (NEGATIVE)
[2022-12-21] MEDS ORDERED: Iopamidol 755 MG/ML 500 ML Multipack Bottle IVPUSH STA (11:02)
== END 2022-12-21 12:05 | disposition home or self-care (01) ==
LOC: MW.ED 08:07
DX: G43.909 Migraine, unspecified, not intractable, without status migrainosus (principal); E03.9 Hypothyroidism, unspecified; R07.9 Chest pain, unspecified; I10 Essential (primary) hypertension; J45.909 Unspecified asthma, uncomplicated; K21.9 Gastro-esophageal reflux disease without esophagitis; M19.90 Unspecified osteoarthritis, unspecified site; Z88.1 Allergy status to other antibiotic agents; Z91.040 Latex allergy status; Z88.2 Allergy status to sulfonamides; Z88.8 Allergy status to other drugs, medicaments and biological substances; Z91.048 Other nonmedicinal substance allergy status; Z91.041 Radiographic dye allergy status; Z88.5 Allergy status to narcotic agent; Z79.82 Long term (current) use of aspirin; Z79.899 Other long term (current) drug therapy; Z20.822 Contact with and (suspected) exposure to COVID-19
CPT/HCPCS: 0241U; 36415; 70450; 70496; 70498; 71045; 80053; 81001; 84443; 84484; 85025; 87086; 93005; 96361; 96374; 96375; 99284; A9270; J1200; J2930; J7040; Q9967; 93010

== ENCOUNTER 2023-01-19 18:01 | Emergency (ER) | payer MEDICARE, OTHER ==
[2023-01-19] MEDS ORDERED: Lidocaine/Epineph/Tetracaine 3 ML Syringe TOP ONE (19:15)
[2023-01-19] MEDS ORDERED: Octyl 2-Cyanoacrylate 1 g/1 mL 1 APPLIC PEN TOP STA (20:43)
== END 2023-01-19 21:28 | disposition home or self-care (01) ==
LOC: MW.ED 18:01
DX: S61.412A Laceration without foreign body of left hand, initial encounter (principal); I10 Essential (primary) hypertension; J45.909 Unspecified asthma, uncomplicated; K21.9 Gastro-esophageal reflux disease without esophagitis; E03.9 Hypothyroidism, unspecified; Z90.49 Acquired absence of other specified parts of digestive tract; Z90.710 Acquired absence of both cervix and uterus; Z79.82 Long term (current) use of aspirin; Z79.899 Other long term (current) drug therapy; Z88.2 Allergy status to sulfonamides; Z88.1 Allergy status to other antibiotic agents; Z88.0 Allergy status to penicillin; Z88.5 Allergy status to narcotic agent; Z88.6 Allergy status to analgesic agent; Z88.8 Allergy status to other drugs, medicaments and biological substances; Z91.048 Other nonmedicinal substance allergy status; Z91.040 Latex allergy status; Z91.041 Radiographic dye allergy status; W54.8XXA Other contact with dog, initial encounter
CPT/HCPCS: 12001; 99282; A9270; 99283

== ENCOUNTER 2023-03-12 04:39 | Emergency (ER) | payer MEDICARE, OTHER ==
[2023-03-12 05:09] LABS: BASOPHILS ABSOLUTE AUTO 0.04 K/uL (0.00-0.20); BASOPHILS PERCENT AUTO 0.5 % (0.0-1.0); EOSINOPHILS ABSOLUTE AUTO 0.21 K/uL (0.00-0.45); EOSINOPHILS PERCENT AUTO 2.8 % (0.0-6.0); HEMATOCRIT 40.4 % (37.0-47.0); HEMOGLOBIN 13.7 g/dL (12.0-16.0); IMMATURE GRAN ABSOLUTE AUTO 0.01 K/uL (0.00-0.05); IMMATURE GRAN PERCENT AUTO 0.1 % (0.0-0.4); LYMPHOCYTES ABSOLUTE AUTO 3.37 K/uL (1.00-4.80); LYMPHOCYTES PERCENT AUTO 45.1 % (24.0-44.0); MEAN CORPUSCULAR HEMOGLOBIN 28.5 pg (28.0-32.0); MEAN CORPUSCULAR HGB CONC 33.9 g/dL (32.0-36.0); MEAN PLATELET VOLUME 10.2 fL (9.4-12.3); MONOCYTES ABSOLUTE AUTO 0.65 K/uL (0.00-0.80); MONOCYTES PERCENT AUTO 8.7 % (0.0-8.0); NEUTROPHILS PERCENT AUTO 42.8 % (41.0-71.0); PLATELET COUNT,PLT 296 K/uL (150-400); RED BLOOD CELL COUNT 4.81 M/uL (4.10-5.30); WHITE BLOOD CELL COUNT,WBC 7.48 K/uL (3.9-11.3)
[2023-03-12 05:41] LABS: CORONAVIRUS COVID-19 NAA NEGATIVE (NEGATIVE); INFLUENZA A NAA NEGATIVE (NEGATIVE); INFLUENZA B NAA NEGATIVE (NEGATIVE); RESPIRATORY SYNCYTIAL VIR NAA NEGATIVE (NEGATIVE)
[2023-03-12 05:46] LABS: A/G RATIO 1.2 (0.9-1.6); ALBUMIN 3.5 g/dL (3.4-5.0); BILIRUBIN TOTAL 0.5 mg/dL (0.2-1.0); CALCIUM 9.1 mg/dL (8.5-10.1); CARBON DIOXIDE,CO2 21.9 mmol/L (21.0-32.0); EST CRCL DRUG DOSING (CG) 45.76 mL/min; POTASSIUM,K 3.7 mmol/L (3.5-5.1); PROTEIN TOTAL,TP 6.5 g/dL (6.4-8.2)
== END 2023-03-12 08:22 | disposition home or self-care (01) ==
LOC: MW.ED 04:39
DX: I10 Essential (primary) hypertension (principal); R51.9 Headache, unspecified; R07.89 Other chest pain; J45.909 Unspecified asthma, uncomplicated; K21.9 Gastro-esophageal reflux disease without esophagitis; E03.9 Hypothyroidism, unspecified; Z79.82 Long term (current) use of aspirin; Z79.899 Other long term (current) drug therapy; Z88.1 Allergy status to other antibiotic agents; Z88.2 Allergy status to sulfonamides; Z88.5 Allergy status to narcotic agent; Z88.8 Allergy status to other drugs, medicaments and biological substances; Z91.040 Latex allergy status; Z91.048 Other nonmedicinal substance allergy status; Z91.041 Radiographic dye allergy status
CPT/HCPCS: 0241U; 36415; 70450; 71045; 80053; 83880; 84484; 85025; 93005; 99285; 93010; 99283

== ENCOUNTER 2023-04-06 17:10 | Emergency (ER) | payer MEDICARE, OTHER | END 2023-04-06 19:48 | disposition home or self-care (01) | LOC: MW.ED 17:10 | DX: J40 Bronchitis, not specified as acute or chronic (principal); I10 Essential (primary) hypertension; K21.9 Gastro-esophageal reflux disease without esophagitis; Z90.49 Acquired absence of other specified parts of digestive tract; Z79.899 Other long term (current) drug therapy | CPT/HCPCS: 71046; 71046-26; 99282; 99283 ==

== ENCOUNTER 2023-05-21 06:42 | Day surgery (SDC) | payer MEDICARE, OTHER ==
[2023-05-21] MEDS: Lactated Ringers 1,000 ML IV SCH (07:18)
[2023-05-21] MEDS ORDERED: propofoL 50 ML ONE (07:23)
[2023-05-21] MEDS ORDERED: Water For Injection, Sterile 20 ML ONE (07:24)
[2023-05-21] MEDS ORDERED: dexmedeTOMIDine HCl 200 MCG/2 ML SDV ONE (07:24)
[2023-05-21] MEDS ORDERED: Phenylephrine HCl In 0.9% NaCl 1 MG/10 ML Syringe ONE (08:09)
[2023-05-21] MEDS ORDERED: Glycopyrrolate 0.2 MG/ML SDV ONE (08:09)
[2023-05-21] MEDS ORDERED: ePHEDrine 50 MG/ML SDV ONE (08:12)
[2023-05-21] MEDS ORDERED: Propofol 200 MG/20 ML SDV ONE (08:25)
[2023-05-21] MEDS ORDERED: Lactated Ringers 1,000 ML IV SCH (08:45)
== END 2023-05-21 09:33 | disposition home or self-care (01) ==
LOC: MW.SDS 06:42
PROVIDERS: ATTEND Surgery
DX: K31.9 Disease of stomach and duodenum, unspecified (principal); R13.10 Dysphagia, unspecified; K21.9 Gastro-esophageal reflux disease without esophagitis; K29.50 Unspecified chronic gastritis without bleeding; K57.31 Diverticulosis of large intestine without perforation or abscess with bleeding; R00.1 Bradycardia, unspecified; F41.9 Anxiety disorder, unspecified; I25.10 Atherosclerotic heart disease of native coronary artery without angina pectoris; I10 Essential (primary) hypertension; Z88.8 Allergy status to other drugs, medicaments and biological substances; Z88.5 Allergy status to narcotic agent; Z91.040 Latex allergy status; Z91.09 Other allergy status, other than to drugs and biological substances; Z79.82 Long term (current) use of aspirin; Z79.899 Other long term (current) drug therapy; Z98.890 Other specified postprocedural states; Z80.0 Family history of malignant neoplasm of digestive organs; Z86.010 Personal history of colon polyps
CPT/HCPCS: 43239; 45378; 88305; J2371; J2704; J3490; J7120; 00813; 99100

== ENCOUNTER 2023-10-06 09:30 | Emergency (ER) | payer MEDICARE, OTHER ==
[2023-10-06 10:32] LABS: BASOPHILS ABSOLUTE AUTO 0.04 K/uL (0.00-0.20); BASOPHILS PERCENT AUTO 0.5 % (0.0-1.0); EOSINOPHILS ABSOLUTE AUTO 0.15 K/uL (0.00-0.45); EOSINOPHILS PERCENT AUTO 1.9 % (0.0-6.0); HEMATOCRIT 44.2 % (37.0-47.0); HEMOGLOBIN 14.8 g/dL (12.0-16.0); IMMATURE GRAN ABSOLUTE AUTO 0.01 K/uL (0.00-0.05); IMMATURE GRAN PERCENT AUTO 0.1 % (0.0-0.4); LYMPHOCYTES ABSOLUTE AUTO 2.53 K/uL (1.00-4.80); LYMPHOCYTES PERCENT AUTO 32.5 % (24.0-44.0); MEAN CORPUSCULAR HEMOGLOBIN 28.1 pg (28.0-32.0); MEAN CORPUSCULAR HGB CONC 33.5 g/dL (32.0-36.0); MEAN PLATELET VOLUME 10.4 fL (9.4-12.3); MONOCYTES ABSOLUTE AUTO 0.67 K/uL (0.00-0.80); MONOCYTES PERCENT AUTO 8.6 % (0.0-8.0); NEUTROPHILS ABSOLUTE AUTO 4.39 K/uL (1.80-7.70); NEUTROPHILS PERCENT AUTO 56.4 % (41.0-71.0); PLATELET COUNT,PLT 300 K/uL (150-400); RED BLOOD CELL COUNT 5.26 M/uL (4.10-5.30); WHITE BLOOD CELL COUNT,WBC 7.79 K/uL (3.9-11.3)
[2023-10-06 11:03] LABS: A/G RATIO 1.1 (0.9-1.6); ALBUMIN 3.9 g/dL (3.4-5.0); BILIRUBIN TOTAL 0.5 mg/dL (0.2-1.0); CALCIUM 9.7 mg/dL (8.5-10.1); CARBON DIOXIDE,CO2 28.5 mmol/L (21.0-32.0); EST CRCL DRUG DOSING (CG) 45.08 mL/min; POTASSIUM,K 4.2 mmol/L (3.5-5.1); PROTEIN TOTAL,TP 7.3 g/dL (6.4-8.2)
[2023-10-06] MEDS: Sodium Chloride 0.9% 10 ML Syringe FLUSH PRN (11:30)
[2023-10-06] MEDS: Sodium Chloride 0.9% 2.5 ML Syringe FLUSH PRN (11:30)
[2023-10-06] MEDS: methylPREDNISolone Sodium Succinate 125 MG/2 ML SDV IVPUSH ONE (11:30)
[2023-10-06] MEDS: diphenhydrAMINE 50 MG/ML SDV IVPUSH ONE (11:30)
[2023-10-06 11:55] LABS: APPEARANCE,URINE CLEAR; BILIRUBIN,URINE NEGATIVE (NEGATIVE); COLOR,URINE YELLOW; GLUCOSE,URINE NEGATIVE (NEGATIVE); KETONES,URINE NEGATIVE (NEGATIVE); LEUKOCYTE ESTERASE,URINE TRACE (NEGATIVE); NITRITE,URINE NEGATIVE (NEGATIVE); OCCULT BLOOD,URINE NEGATIVE (NEGATIVE); PH,URINE 6.5 (5.0-8.0); PROTEIN,URINE NEGATIVE (NEGATIVE); UROBILINOGEN,URINE 0.2 EU/dL (<2.0)
[2023-10-06 12:09] LABS: RBC,URINE 0-1 (0-2/HPF); SQUAMOUS EPITHELIAL CELLS,UR OCCASIONAL
[2023-10-06 12:10] LABS: BACTERIA,URINE FEW (NEGATIVE); MUCUS,URINE NOT SEEN (NONE-MOD)
[2023-10-06] MEDS: Iopamidol 755 MG/ML 500 ML Multipack Bottle IVPUSH STA (12:58)
[2023-10-06] MEDS: Prochlorperazine 10 MG/2 ML SDV IVPUSH ONE (15:11)
[2023-10-06] MEDS: Ketorolac 30 MG/ML SDV IVPUSH ONE (15:11)
== END 2023-10-06 16:13 | disposition home or self-care (01) ==
LOC: MW.ED 09:30
DX: R51.9 Headache, unspecified (principal); I10 Essential (primary) hypertension; K21.9 Gastro-esophageal reflux disease without esophagitis; E03.9 Hypothyroidism, unspecified; Z90.49 Acquired absence of other specified parts of digestive tract; Z90.710 Acquired absence of both cervix and uterus; Z79.82 Long term (current) use of aspirin; Z79.890 Hormone replacement therapy; Z79.899 Other long term (current) drug therapy; Z88.1 Allergy status to other antibiotic agents; Z88.2 Allergy status to sulfonamides; Z88.5 Allergy status to narcotic agent; Z91.040 Latex allergy status; Z91.048 Other nonmedicinal substance allergy status; Z88.8 Allergy status to other drugs, medicaments and biological substances; Z91.041 Radiographic dye allergy status; Z75.8 Other problems related to medical facilities and other health care
CPT/HCPCS: 36415; 70450; 70496; 70498; 71045; 80053; 81001; 84484; 85025; 85652; 93005; 96374; 96375; 99284; J0780; J1200; J1885; J2919; J3490; Q9967; 93010; 99285

== ENCOUNTER 2024-04-22 22:42 | Emergency (ER) | payer MEDICARE, OTHER ==
[2024-04-22 23:06] LABS: BASOPHILS ABSOLUTE AUTO 0.04 K/uL (0.00-0.20); BASOPHILS PERCENT AUTO 0.4 % (0.0-1.0); EOSINOPHILS ABSOLUTE AUTO 0.33 K/uL (0.00-0.45); EOSINOPHILS PERCENT AUTO 3.5 % (0.0-6.0); HEMATOCRIT 42.6 % (37.0-47.0); HEMOGLOBIN 14.2 g/dL (12.0-16.0); IMMATURE GRAN ABSOLUTE AUTO 0.01 K/uL (0.00-0.05); IMMATURE GRAN PERCENT AUTO 0.1 % (0.0-0.4); LYMPHOCYTES ABSOLUTE AUTO 4.14 K/uL (1.00-4.80); LYMPHOCYTES PERCENT AUTO 44.1 % (24.0-44.0); MEAN CORPUSCULAR HEMOGLOBIN 27.8 pg (28.0-32.0); MEAN CORPUSCULAR HGB CONC 33.3 g/dL (32.0-36.0); MEAN CORPUSCULAR VOLUME 83.5 fL (83.0-99.0); MEAN PLATELET VOLUME 10.4 fL (9.4-12.3); MONOCYTES ABSOLUTE AUTO 0.83 K/uL (0.00-0.80); MONOCYTES PERCENT AUTO 8.8 % (0.0-8.0); NEUTROPHILS ABSOLUTE AUTO 4.04 K/uL (1.80-7.70); NEUTROPHILS PERCENT AUTO 43.1 % (41.0-71.0); PLATELET COUNT,PLT 318 K/uL (150-400); WHITE BLOOD CELL COUNT,WBC 9.39 K/uL (3.9-11.3)
[2024-04-22 23:30] LABS: A/G RATIO 1.1 (0.9-1.6); ALANINE AMINOTRANSFERASE,ALT 18 IU/L (14-63); ALBUMIN 3.8 g/dL (3.4-5.0); ALKALINE PHOSPHATASE 79 U/L (46-116); ASPARTATE AMNIOTRANSFERASE,AST 11 IU/L (15-37); BILIRUBIN TOTAL 0.4 mg/dL (0.2-1.0); BLOOD UREA NITROGEN,BUN 13 mg/dL (7.0-18.0); CALCIUM 9.2 mg/dL (8.5-10.1); CARBON DIOXIDE,CO2 23.5 mmol/L (21.0-32.0); CHLORIDE,CL 105 mmol/L (98-107); CREATININE 1.3 mg/dL (0.6-1.0); ESTIMATED GFR 43 mL/min (>60); GLUCOSE RANDOM 101 mg/dL (74-106); POTASSIUM,K 3.5 mmol/L (3.5-5.1); PROTEIN TOTAL,TP 7.2 g/dL (6.4-8.2); SODIUM,NA 140 mmol/L (136-145)
== END 2024-04-23 01:17 | disposition home or self-care (01) ==
LOC: MW.ED 22:42
DX: M25.512 Pain in left shoulder (principal); I10 Essential (primary) hypertension; J45.909 Unspecified asthma, uncomplicated; K21.9 Gastro-esophageal reflux disease without esophagitis; E03.9 Hypothyroidism, unspecified; E78.5 Hyperlipidemia, unspecified; Z88.8 Allergy status to other drugs, medicaments and biological substances; Z91.040 Latex allergy status; Z88.1 Allergy status to other antibiotic agents; Z88.2 Allergy status to sulfonamides; Z91.048 Other nonmedicinal substance allergy status; Z91.041 Radiographic dye allergy status; Z88.6 Allergy status to analgesic agent
CPT/HCPCS: 36415; 70450; 70450-26; 71045; 71045-26; 80053; 84484; 85025; 87428-QW; 93005; 99284